=== PATIENT | male | born 1965 | race Caucasian/White ===

== ENCOUNTER 2017-03-01 09:47 | Inpatient (IN) | payer BC ==
[2017-03-01 10:51] LABS: Hematocrit 37 % (42-52); Hemoglobin 11.4 g/dl (14.0-18.0); Mean Corpuscular HGB Conc 31 g/dl (31-36); Mean Corpuscular Hemoglobin 26 pg (27-31); Mean Corpuscular Volume 84 fL (80-94); Mean Platelet Volume 7 um3 (7.4-10.4); Red Blood Count 4.34 10^6/ul (4.0-5.4); Red Cell Distribution Width 18 % (10.5-15); White Blood Count 20.2 10^3/ul (3.5-10.8)
[2017-03-01 10:52] LABS: Comments Flag Yes
[2017-03-01 11:05] LABS: Albumin 3.1 g/dL (3.2-5.2); Calcium 8.6 mg/dL (8.6-10.3); EGFR African American 74.8 (>60); EGFR Non-African American 58.2 (>60); Globulin 3.6 g/dL (2-4); Potassium 3.7 mmol/L (3.5-5.0); Total Bilirubin 0.6 mg/dL (0.2-1.0); Total Protein 6.7 g/dL (6.4-8.9)
[2017-03-01] MEDS ORDERED: NS 0.9% 1000 ML* 1,000 ML IV ONE (11:15)
[2017-03-01] MEDS ORDERED: Iodixanol* (CONTRAST) 320 MG/ML 100 ML SDV IV ONE (11:26)
[2017-03-01] MEDS ORDERED: Azithromycin IV(*) 500 MG in NS 0.9% 250 ML* 250 ML IVPB ONE (12:16)
[2017-03-01] MEDS ORDERED: cefTRIAXone(*) 1 GM in NS 0.9% 50 ML* 50 ML IVPB ONE (12:16)
--- NOTE | 2017-03-01 12:31 | RAD ---
INDICATION: Pleuritic chest pain. COMPARISON: Comparison is made with a prior chest x-ray study from March 01, [address] of the chest from January 31, 2017. Correlation is also made with prior CTs of the chest from October 12, 2016 and January 07, 2015. TECHNIQUE: A CT scan of the chest was performed with intravenous contrast following intravenous injection of 80 ml of Visipaque 320 nonionic contrast. Contiguous axial sections were obtained from the lung apices through the lung bases. Images were reconstructed in the coronal and sagittal planes. FINDINGS: There is a relatively large infiltrate with air bronchograms present in the right lower lobe. There is a small right pleural effusion. There is also a much smaller infiltrate present in the right middle lobe. There is minimal atelectasis in the left lower lobe. There is a 1.3 x 1.2 cm pulmonary nodule present in the left lower lobe at the medial lung base which is unchanged from prior studies dating back to at least December 2014. There are multiple enlarged lymph nodes present within the mediastinum in the right paratracheal aorticopulmonary window and subcarinal regions and also within the azygos esophageal recess. The largest lymph node is noted in the aorticopulmonary window region measuring 3.5 x 2.8 cm in size which is unchanged significantly from the prior exam. There has been interval decrease in size of some of the lymph nodes. For example a lymph node in the right paratracheal region measuring 2.6 cm in transverse dimension previously measured 3.3 cm in transverse dimension. There are also mediastinal lymph nodes which have increased in size for example a lymph node in the subcarinal region measuring 2.1 cm in transverse dimension previously measured 1.4 cm in transverse dimension. There is also a right hilar mass which is ill-defined which appears unchanged significantly from the prior study measuring 2.0 cm in transverse dimension. The heart is within normal limits in size. No pericardial effusion is present. The thoracic aorta is normal in caliber. Images of the upper abdomen demonstrate findings consistent with a right nephrectomy. The patient is status post gastric bypass surgery. No significant focal osseous abnormality is seen. The results of this exam were discussed with the referring clinician. IMPRESSION: 1. RIGHT LOWER LOBE INFILTRATE AND SMALL PLEURAL EFFUSION. 2. MEDIASTINAL AND RIGHT HILAR LYMPHADENOPATHY DEMONSTRATING A MIXED RESPONSE FROM THE PRIOR STUDY DISCUSSED ABOVE. 3. STABLE LEFT LOWER LOBE PULMONARY NODULE.
[2017-03-01 12:40] LABS: Urine Bacteria Absent (Absent); Urine Bilirubin Negative (Negative); Urine Glucose Negative (Negative); Urine Nitrite Negative (Negative)
[2017-03-01] MEDS ORDERED: Morphine INJ* 2 MG/ML 1 ML SYRINGE IV ONE (13:02)
[2017-03-01] MEDS: Morphine INJ* 2 MG/ML 1 ML SYRINGE IV PRN ×2 (15:48→20:54)
[2017-03-01] MEDS: Heparin VIAL(*) 5000 UNITS/ML VIAL (FIVE THOUSAND) SUBCUT SCH ×2 (15:49→20:55)
[2017-03-01] MEDS ORDERED: traZODone TAB* 50 MG TAB PO PRN (16:11)
[2017-03-01] MEDS ORDERED: ALPRAZolam TAB* 0.25 MG PO PRN (16:17)
[2017-03-01] MEDS: Cefepime(*) 2 GM in NS 0.9% 50 ML* 50 ML IVPB SCH (18:20)
[2017-03-01] MEDS ORDERED: Alteplase (CATHFLO)* 2 MG VIAL IV ONE (19:00)
[2017-03-01 19:32] LABS: Comments Flag Yes; Hematocrit 35 % (42-52); Hemoglobin 10.8 g/dl (14.0-18.0); Mean Corpuscular HGB Conc 31 g/dl (31-36); Mean Corpuscular Hemoglobin 26 pg (27-31); Mean Corpuscular Volume 85 fL (80-94); Mean Platelet Volume 8 um3 (7.4-10.4); Red Blood Count 4.12 10^6/ul (4.0-5.4); Red Cell Distribution Width 17 % (10.5-15); White Blood Count 18.7 10^3/ul (3.5-10.8)
[2017-03-01 19:45] LABS: Calcium 8.3 mg/dL (8.6-10.3); EGFR African American 91.7 (>60); EGFR Non-African American 71.3 (>60); Potassium 3.5 mmol/L (3.5-5.0)
[2017-03-01] MEDS: clonazePAM TAB(*) 1 MG PO PRN (20:50)
[2017-03-02] MEDS: Acetaminophen TAB* 325 MG PO PRN ×2 (01:01→17:22)
[2017-03-02] MEDS: Morphine INJ* 2 MG/ML 1 ML SYRINGE IV PRN ×6 (01:02→17:28)
[2017-03-02] MEDS: NS 0.9% 1000 ML* 1,000 ML IV SCH ×3 (01:15→23:00)
[2017-03-02] MEDS: Cefepime(*) 2 GM in NS 0.9% 50 ML* 50 ML IVPB SCH ×2 (02:02→15:11)
[2017-03-02] MEDS: Heparin VIAL(*) 5000 UNITS/ML VIAL (FIVE THOUSAND) SUBCUT SCH ×3 (07:20→20:33)
[2017-03-02] MEDS: BuPROPion XL* 150 MG TAB.XL PO SCH (08:11)
[2017-03-02] MEDS: Citalopram TAB* 40 MG PO SCH (08:12)
[2017-03-02] MEDS: Dexamethasone TAB* 1 MG PO SCH (08:12)
--- NOTE | 2017-03-02 09:21 | RAD ---
Indication: Cough. Single view of the chest demonstrates right lower lobe atelectasis or pneumonia. Left lung field is clear. Central line is in place. IMPRESSION: Findings consistent with right basilar pneumonia or atelectasis. This was not present on prior CT.
--- NOTE | 2017-03-02 10:09 | RAD ---
Indication: Pleuritic chest pain. Loss of consciousness. Renal cell carcinoma. RIGHT temporal lobe metastasis. Comparison: February 09, 2017 MRI and Technique: Noncontrast CT vertex of skull through foramen magnum. Report: Extensive vasogenic edema involving the RIGHT temporal, parietal, and frontal lobes with associated mass effect including partial overlying sulcal effacement, 3 mm leftward midline shift at the level of the septum pellucidum, and partial compression of the RIGHT lateral ventricle without significant change compared with the February 09, 2017 MRI. 1.5 x 1.6 cm region of ill-defined heterogeneous increased density at the level of the RIGHT temporal lobe uncus corresponds with the enhancing tumor on February 09, 2017 MRI. No additional focal intra-axial or extra-axial supratentorial or infratentorial lesions evident. Negative for effacement of the basal cisterns. Negative for intra or extra-axial hemorrhage. Unremarkable orbital contents. No suspicious calvarial or skull base lesions. Clear visualized paranasal sinuses and mastoid air spaces. Unremarkable scalp. IMPRESSION: 1. No significant change in extensive vasogenic edema involving the RIGHT temporal, parietal, and frontal lobes with associated mass effect as described without interval change compared with the February 09, 2017 MRI secondary to the previously documented metastasis at the medial RIGHT temporal lobe. No new intra or extra-axial lesions evident within limits of noncontrast CT. 2. No evidence for intra or extra-axial hemorrhage. 3. No additional acute intracranial process evident.
[2017-03-03] MEDS: Cefepime(*) 2 GM in NS 0.9% 50 ML* 50 ML IVPB SCH ×3 (02:31→15:00)
[2017-03-03] MEDS: Morphine INJ* 2 MG/ML 1 ML SYRINGE IV PRN ×5 (03:18→18:34)
[2017-03-03] MEDS: Heparin VIAL(*) 5000 UNITS/ML VIAL (FIVE THOUSAND) SUBCUT SCH ×3 (05:06→20:46)
[2017-03-03] MEDS: Dexamethasone TAB* 1 MG PO SCH (07:59)
[2017-03-03] MEDS: BuPROPion XL* 150 MG TAB.XL PO SCH (08:00)
[2017-03-03] MEDS: Citalopram TAB* 40 MG PO SCH (08:00)
--- NOTE | 2017-03-03 08:23 | PN ---
Progress Note - Progress Note SOAP: Subjective: overall improving, though did need to be placed on O2 this am. admits to shallow breathing and being afraid to get out of bed. will not sit up for me to listen to him this am (rolled to side). continued pleuritic chest pain, though better. no cough. no diarrhea. Objective: Vital Signs Temp Pulse Resp BP Pulse Ox 98.4 F 80 20 128/71 98 03/03/17 07:37 03/03/17 07:37 03/03/17 08:00 03/03/17 07:37 03/03/17 07:45 morbidly obese male lying flat in NAD perr eomi op moist dec resp effort, dec bs right base s1 s2 distant obese nt +bs no le edema A+O x 3 nonfocal neurological exam Acetaminophen (Tylenol Tab*) 650 mg PO Q4H PRN PRN Reason: mild pain/fever Last Admin: 03/02/17 17:22 Dose: 650 mg Alprazolam (Xanax Tab*) 0.25 mg PO TID PRN PRN Reason: ANXIETY Last Admin: 03/02/17 03:50 Dose: 0.25 mg Bupropion HCl (Wellbutrin Xl *) 150 mg PO QAM [facility] PRN Reason: Protocol Last Admin: 03/03/17 08:00 Dose: 150 mg Citalopram Hydrobromide (Celexa Tab*) 40 mg PO DAILY [facility] Last Admin: 03/03/17 08:00 Dose: 40 mg Clonazepam (Klonopin Tab(*)) 1 mg PO BID PRN PRN Reason: ANXIETY Last Admin: 03/01/17 20:50 Dose: 1 mg Dexamethasone (Decadron Tab*) 2 mg PO QAM [facility] Last Admin: 03/03/17 07:59 Dose: 2 mg Heparin Sodium (Porcine) (Heparin Flush Port (Ivad)) 5 ml FLUSH DAILY [facility] PRN Reason: Protocol Last Admin: 03/02/17 09:24 Dose: Not Given Heparin Sodium (Porcine) (Heparin Vial(*)) 5,000 units SUBCUT Q8HR [facility] Last Admin: 03/03/17 05:06 Dose: 5,000 units Sodium Chloride (Ns 0.9% 1000 Ml*) 1,000 mls @ 100 mls/hr IV PER RATE [facility] Last Admin: 03/02/17 23:00 Dose: 100 mls/hr Cefepime HCl 2 gm/ Sodium (Chloride) 50 mls @ 100 mls/hr IVPB Q12H [facility] Last Admin: 03/03/17 02:31 Dose: 100 mls/hr Morphine Sulfate (Morphine Inj (Syringe)*) 2 mg IV Q2H PRN PRN Reason: PAIN Last Admin: 03/03/17 08:00 Dose: 2 mg Trazodone HCl (Desyrel Tab*) 150 mg PO BEDTIME PRN PRN Reason: INSOMNIA labs pending (port flush but no blood return) Assessment: 51 yo morbidly obese Male with metastatic renal cell carcinoma on palliative nivolumab presenting with a large right lower and middle lobe PNA. clinically improving slowly. Plan: -cont cefepime -incentive spirometer (suspect worsening hypoxia is driven by atelectasis and shallow breathing) -encouraged to get out of bed to chair/ambulate. PT consult placed -cont mrophine PRN pain -bowel regimen -cont dexamethasone (brain mets) -heparin sc dvt prophylaxis
[2017-03-03 09:22] LABS: Hematocrit 31 % (42-52); Hemoglobin 9.6 g/dl (14.0-18.0); Mean Corpuscular HGB Conc 32 g/dl (31-36); Mean Corpuscular Hemoglobin 27 pg (27-31); Mean Corpuscular Volume 84 fL (80-94); Mean Platelet Volume 8 um3 (7.4-10.4); Red Blood Count 3.64 10^6/ul (4.0-5.4); Red Cell Distribution Width 17 % (10.5-15); White Blood Count 12.3 10^3/ul (3.5-10.8)
[2017-03-03 09:33] LABS: BUN/Creatinine Ratio 10.7 (8-20); Calcium 8.3 mg/dL (8.6-10.3); EGFR African American 141.2 (>60); EGFR Non-African American 109.8 (>60); Potassium 3.3 mmol/L (3.5-5.0)
[2017-03-03] MEDS: NS 0.9% 1000 ML* 1,000 ML IV SCH ×2 (10:05→22:18)
[2017-03-03] MEDS: KCL 10 MEQ/50 ML IVPREMIX* 10 MEQ/50 ML BAG IV SCH ×4 (10:16→15:50)
[2017-03-04] MEDS: Cefepime(*) 2 GM in NS 0.9% 50 ML* 50 ML IVPB SCH ×2 (03:22→14:48)
[2017-03-04 05:10] LABS: Hematocrit 29 % (42-52); Mean Corpuscular HGB Conc 31 g/dl (31-36); Mean Corpuscular Hemoglobin 26 pg (27-31); Mean Corpuscular Volume 85 fL (80-94); Mean Platelet Volume 8 um3 (7.4-10.4); Red Blood Count 3.45 10^6/ul (4.0-5.4); Red Cell Distribution Width 17 % (10.5-15); White Blood Count 10.3 10^3/ul (3.5-10.8)
[2017-03-04] MEDS: Heparin VIAL(*) 5000 UNITS/ML VIAL (FIVE THOUSAND) SUBCUT SCH ×2 (05:10→14:22)
[2017-03-04 05:26] LABS: Albumin 2.4 g/dL (3.2-5.2); BUN/Creatinine Ratio 9.7 (8-20); EGFR Non-African American 115.1 (>60); Globulin 3.2 g/dL (2-4); Magnesium 2.1 mg/dL (1.9-2.7); Potassium 3.8 mmol/L (3.5-5.0); Total Bilirubin 0.2 mg/dL (0.2-1.0); Total Protein 5.6 g/dL (6.4-8.9)
[2017-03-04] MEDS: Citalopram TAB* 40 MG PO SCH (08:17)
[2017-03-04] MEDS: BuPROPion XL* 150 MG TAB.XL PO SCH (08:18)
[2017-03-04] MEDS: Dexamethasone TAB* 1 MG PO SCH (08:18)
[2017-03-04] MEDS: NS 0.9% 1000 ML* 1,000 ML IV SCH (09:46)
--- NOTE | 2017-03-04 12:02 | PN ---
Subjective Date of Service: 03/04/17 Interval History: Pt is feeling well. He states he is not having as much pain with deep breath today. He feels that he can breathe much deeper than even just yesterday. He has been up and walking to the bathroom without any difficulty. Objective Active Medications: Acetaminophen (Tylenol Tab*) 650 mg PO Q4H PRN PRN Reason: mild pain/fever Last Admin: 03/02/17 17:22 Dose: 650 mg Alprazolam (Xanax Tab*) 0.25 mg PO TID PRN PRN Reason: ANXIETY Last Admin: 03/02/17 03:50 Dose: 0.25 mg Bupropion HCl (Wellbutrin Xl *) 150 mg PO QAM [facility] PRN Reason: Protocol Last Admin: 03/04/17 08:18 Dose: 150 mg Citalopram Hydrobromide (Celexa Tab*) 40 mg PO DAILY [facility] Last Admin: 03/04/17 08:17 Dose: 40 mg Clonazepam (Klonopin Tab(*)) 1 mg PO BID PRN PRN Reason: ANXIETY Last Admin: 03/01/17 20:50 Dose: 1 mg Dexamethasone (Decadron Tab*) 2 mg PO QAM [facility] Last Admin: 03/04/17 08:18 Dose: 2 mg Heparin Sodium (Porcine) (Heparin Flush Port (Ivad)) 5 ml FLUSH DAILY [facility] PRN Reason: Protocol Last Admin: 03/04/17 08:11 Dose: Not Given Heparin Sodium (Porcine) (Heparin Vial(*)) 5,000 units SUBCUT Q8HR [facility] Last Admin: 03/04/17 05:10 Dose: 5,000 units Sodium Chloride (Ns 0.9% 1000 Ml*) 1,000 mls @ 100 mls/hr IV PER RATE [facility] Last Admin: 03/04/17 09:46 Dose: 100 mls/hr Cefepime HCl 2 gm/ Sodium (Chloride) 50 mls @ 100 mls/hr IVPB Q12H [facility] Last Admin: 03/04/17 03:22 Dose: 100 mls/hr Morphine Sulfate (Morphine Inj (Syringe)*) 2 mg IV Q2H PRN PRN Reason: PAIN Last Admin: 03/03/17 18:34 Dose: 2 mg Trazodone HCl (Desyrel Tab*) 150 mg PO BEDTIME PRN PRN Reason: INSOMNIA Vital Signs 03/03/17 03/03/17 03/03/17 16:16 16:26 17:26 Temperature 98.6 F Pulse Rate 80 Respiratory 19 16 20 Rate Blood Pressure 113/67 (mmHg) O2 Sat by Pulse 92 Oximetry 03/03/17 03/03/17 03/03/17 18:34 19:34 19:36 Temperature 97.5 F Pulse Rate 101 Respiratory 20 20 17 Rate Blood Pressure 124/73 (mmHg) O2 Sat by Pulse 94 Oximetry 03/03/17 03/04/17 03/04/17 20:00 00:00 00:29 Temperature 99.0 F Pulse Rate 70 Respiratory 20 20 Rate Blood Pressure 139/80 (mmHg) O2 Sat by Pulse 94 96 96 Oximetry 03/04/17 03/04/17 03/04/17 04:42 07:18 08:05 Temperature 98.2 F 97.8 F Pulse Rate 67 62 Respiratory 20 16 20 Rate Blood Pressure 130/72 134/80 (mmHg) O2 Sat by Pulse 95 97 Oximetry 03/04/17 11:39 Temperature 98.3 F Pulse Rate 64 Respiratory 16 Rate Blood Pressure 120/72 (mmHg) O2 Sat by Pulse 91 Oximetry Oxygen Devices in Use Now: None Appearance: Middle aged male lying in bed, NAD Eyes: No Scleral Icterus Ears/Nose/Mouth/Throat: Mucous Membranes Moist Respiratory: Symmetrical Chest Expansion and Respiratory Effort, - - markedly decreased breath sounds at the R base Cardiovascular: NL Sounds; No Murmurs; No JVD, RRR, - - L LE > R LE Abdominal: NL Sounds; No Tenderness; No Distention - obese Extremities: No Clubbing, Cyanosis Skin: No Rash or Ulcers, No Nodules or Sclerosis Neurological: Alert and Oriented x 3 Result Diagrams: 03/04/17 04:34 03/04/17 04:34 Microbiology and Other Data: Microbiology 03/02/17 02:42 Aerobic Blood Culture - Preliminary Blood Venous No Growth Day 2 Anaerobic Blood Culture - Preliminary No Growth Day 2 Blood Culture - Final 03/01/17 19:15 Aerobic Blood Culture - Preliminary Blood Venous No Growth Day 2 Anaerobic Blood Culture - Preliminary No Growth Day 2 Blood Culture - Final Assess/Plan/Problems-Billing Mr Teresa is a 51 yo M with a h/o metastatic renal cell carcinoma (brain mets) who presented to [facility] with c/o severe R rib pain and was found to be septic secondary to a RLL pneumonia. - Patient Problems (1) Sepsis Current Visit: Yes Status: Acute Comment: The patient was septic on admission with a SOFA score of 2. By sepsis 2 criteria the pateint was severely septic with leukocytosis, fever and tachycardia with CRISTOBAL as end organ dysfunction. The patient was septic secondary to a RLL pneumonia. The sepsis has now resolved. (2) RLL pneumonia Current Visit: Yes Status: Acute Code(s): J18.1 - LOBAR PNEUMONIA, UNSPECIFIED ORGANISM SNOMED Code(s): 971485701 Comment: The patient has a very dense RLL infiltrate with small pleural effusion on admission. His WBC count has normalized, he is afebrile and he states his breathing is much more comfortable. In fact he feels ready to go home. Will get doppler of the L LE as it is larger than the R and if no DVT can d/c pt home. If positive for DVT will start lovenox. (3) Renal cell carcinoma Current Visit: Yes Status: Chronic Code(s): C64.9 - MALIGNANT NEOPLASM OF UNSP KIDNEY, EXCEPT RENAL PELVIS SNOMED Code(s): 503765816 Comment: Management per oncology. (4) Anxiety Current Visit: Yes Status: Chronic Code(s): F41.9 - ANXIETY DISORDER, UNSPECIFIED SNOMED Code(s): 32092665 Comment: Continue prn xanax. (5) DVT prophylaxis Current Visit: Yes Status: Acute Code(s): TEV1301 - SNOMED Code(s): 052348083 Comment: SQ heparin (6) Full code status Current Visit: Yes Status: Acute Code(s): Z78.9 - OTHER SPECIFIED HEALTH STATUS SNOMED Code(s): 165333740
--- NOTE | 2017-03-04 17:36 | RAD ---
HISTORY: Left lower extremity swelling TECHNIQUE: Multiple transverse and longitudinal ultrasound images were obtained of the veins of the right lower extremity using grayscale, color Doppler, and spectral Doppler imaging with and without compression and with augmentation. FINDINGS: VEINS: There is near complete loss of color flow involving the left popliteal vein. The left popliteal vein has echogenic thrombus in the lumen and is only partially compressive. There is occlusive thrombus filling the left posterior tibial veins. The common femoral vein, deep femoral vein and femoral vein are compressible throughout their course, with normal flow on color Doppler imaging and normal response to augmentation on spectral Doppler imaging. SOFT TISSUES: Grossly normal. No large popliteal fossa cyst was identified. IMPRESSION: There is almost completely occlusive thrombus involving the left popliteal vein and occlusive thrombus in the left posterior tibial vein.
[2017-03-04] MEDS: Enoxaparin(*) 150 MG/ML 1 ML SYRINGE SUBCUT SCH (18:14)
[2017-03-05] MEDS: Cefepime(*) 2 GM in NS 0.9% 50 ML* 50 ML IVPB SCH (02:46)
[2017-03-05] MEDS: Enoxaparin(*) 150 MG/ML 1 ML SYRINGE SUBCUT SCH (05:54)
[2017-03-05] MEDS ORDERED: Loperamide CAP* 2 MG PO ONE (10:06)
[2017-03-05] MEDS: clonazePAM TAB(*) 1 MG PO PRN (10:34)
[2017-03-05] MEDS: Citalopram TAB* 40 MG PO SCH (10:35)
[2017-03-05] MEDS: Dexamethasone TAB* 1 MG PO SCH (10:35)
[2017-03-05] MEDS: BuPROPion XL* 150 MG TAB.XL PO SCH (10:35)
[2017-03-05 12:17] VITALS: BP 139/83
[2017-03-05] MEDS ORDERED: Enoxaparin(*) 40 MG/0.4 ML SYR ONE (12:21)
--- NOTE | 2017-03-05 23:42 | DS ---
DISCHARGE SUMMARY: DATE OF ADMISSION: 03/01/17 DATE OF DISCHARGE: 03/05/17 ATTENDING PROVIDER: Shanon Choi MD (DICTATED BY TOYA URBINA) REASON FOR ADMISSION: Right lower lobe pneumonia. OTHER CURRENT DIAGNOSES: Include: 1. New deep vein thrombosis, left lower extremity. 2. Sepsis. 3. Anxiety disorder. 4. Renal cell carcinoma, currently on nivolumab. 5. Cerebral lesion. 6. Syncope. 7. Gastroesophageal reflux disease. 8. Metastatic carcinoma to the lung from renal cell carcinoma. HOSPITAL COURSE: Briefly, the patient was admitted to the hospital through the emergency room and felt to meet sepsis criteria. He did also get a chest x-ray and CT scan of the chest, which revealed a right lower lobe pneumonia which was rather extensive. He was amaral cultured and placed on cefepime antibiotic therapy. His home medications were continued during his hospital stay. On Sunday, the day before his discharge, Dr. Bravo ordered a Doppler of the left lower extremity, which did reveal a popliteal occlusive DVT and was placed on Lovenox b.i.d. dosing of 130 mg b.i.d. The patient on the day of his discharge , the vital signs were all stable and his breathing was significantly better. He will be sent home on the following discharge medications. 1. Tylenol as needed. 2. Xanax 0.25 p.o. t.i.d. p.r.n. anxiety. 3. Wellbutrin XL 150 mg in the morning. 4. Celexa 40 mg daily. 5. Klonopin 1 mg p.o. b.i.d. p.r.n. anxiety. 6. Decadron 2 mg p.o. daily. 7. Lovenox 120 mg subcutaneous every 12 hours, the dosing was reviewed with Dr. Atkins. 8. Trazodone 150 mg p.o. at bedtime for insomnia. 9. Levaquin 750 mg p.o. every day x 10 additional days. He will also e-scribe the Lovenox for b.i.d. dosing. Both [id number] and mother are being taught for Lovenox teaching prior to his discharge. He steadily improved throughout the course of his stay for pneumonia treatment and his vital signs remain stable and he is afebrile today. He will need to follow up with Dr. Atkins in approximately 1 week. His nivolumab therapy which was scheduled for 03/05/17 has been cancelled until his pneumonia is completely treated. In addition, he will follow a regular diet and activity level as tolerated and continue with medications as above. TOYA URBINA [id number]/[facility] #: [id number] [place]
== END 2017-03-05 13:20 | disposition home or self-care (01) | DRG 720 ==
LOC: ED 09:47 → MEDTELE 13:04 → UNDOADMIN 13:09 → MEDTELE 13:09
PROVIDERS: ADMIT Internal Medicine Hematology & Oncology; ATTEND Internal Medicine Hematology & Oncology
DX: A41.9 Sepsis, unspecified organism (principal); J18.9 Pneumonia, unspecified organism; C78.00 Secondary malignant neoplasm of unspecified lung; I82.432 Acute embolism and thrombosis of left popliteal vein; C64.9 Malignant neoplasm of unspecified kidney, except renal pelvis; F41.9 Anxiety disorder, unspecified; K21.9 Gastro-esophageal reflux disease without esophagitis; G93.9 Disorder of brain, unspecified; Z79.1 Long term (current) use of non-steroidal anti-inflammatories (NSAID); Z79.899 Other long term (current) drug therapy; E66.9 Obesity, unspecified; Z68.38 Body mass index [BMI] 38.0-38.9, adult
CPT/HCPCS: 36415; 70450; 71010; 71260; 80048; 80053; 81003; 81015; 83605; 83735; 84484; 85025; 85610; 85730; 87040; 93005; 94760; 99223; 99239; A9270-GY; J0456; J0692; J0696; J1642; J1644; J1650; J2270; J2997; J3480; Q9967

== ENCOUNTER 2017-03-15 12:47 | Inpatient (IN) | payer BC ==
[2017-03-15] MEDS ORDERED: NS 0.9% 1000 ML* 1,000 ML IV SCH (13:45)
[2017-03-15] MEDS ORDERED: ALPRAZOLAM 0.5 MG PO PRN (13:53)
[2017-03-15] MEDS ORDERED: traZODone TAB* 50 MG TAB PO PRN (14:01)
[2017-03-15] MEDS ORDERED: Ondansetron INJ* 2 MG/ML VIAL IV PRN (14:04)
[2017-03-15] MEDS ORDERED: LORazepam INJ* 2 MG/ML 1 ML VIAL IV PUSH PRN (14:04)
[2017-03-15] MEDS ORDERED: Lidocaine 1% INJ* 10 MG/ML 30 ML SDV ONE (14:38)
[2017-03-15] MEDS ORDERED: Heparin 2 UNITS/ML IVPREMIX* 1,000 ML IV ONE (14:39)
[2017-03-15] MEDS ORDERED: Buffered Lidocaine 1% SYRIN* 5 ML/SYR SYRINGE ONE (14:41)
[2017-03-15] MEDS: Pantoprazole IV* 80 MG in NS 0.9% 250 ML* 250 ML IVPB SCH ×2 (14:45→18:03)
[2017-03-15 16:36] LABS: Hematocrit 24 % (42-52); Hemoglobin 7.6 g/dl (14.0-18.0); Mean Corpuscular HGB Conc 31 g/dl (31-36); Mean Corpuscular Hemoglobin 26 pg (27-31); Mean Corpuscular Volume 84 fL (80-94); Mean Platelet Volume 7 um3 (7.4-10.4); Red Blood Count 2.88 10^6/ul (4.0-5.4); Red Cell Distribution Width 18 % (10.5-15); White Blood Count 9.9 10^3/ul (3.5-10.8)
[2017-03-15] MEDS ORDERED: Pantoprazole IV* 40 MG IV ONE (18:00)
[2017-03-15] MEDS: clonazePAM TAB(*) 1 MG PO SCH (20:58)
--- NOTE | 2017-03-16 01:53 | CONS ---
GASTROENTEROLOGY CONSULT: DATE OF: 03/15/17 CONSULTING PHYSICIAN: Fabricio Eisenberg REASON FOR CONSULT: Hematemesis and dark red rectal bleeding that occurred after being treated for the last 7 to 8 days with Lovenox twice a day for a new left lower leg DVT coming on while hospitalized for pneumonia. HISTORY OF PRESENT ILLNESS: This 51-year-old man, who has metastatic renal cell cancer, currently on nivolumab since mid October 2016, was hospitalized for pneumonia 2 weeks ago and during that time developed DVT and was placed on Lovenox. He apparently has never had a thromboembolic event before. He was discharged on Lovenox twice a day and then on the evening of March 13 passed dark bloody stool followed within half an hour by vomiting that was also bloody. He said it was very loose and runny, but did not contain any clots. About every 8 hours, he had another such event. The history and physical documents his calling in to the answering service but then not promptly following up on suggestions until today when he was seen in followup and then was quickly admitted. He elected to not take the Lovenox the last 3 scheduled shots and thus credits that step with today not vomiting or having any further bloody stools since stopping the Lovenox. He denies any prior history of gastroesophageal reflux or vomiting blood. He had a gastroscopy by Dr Roman about 6 years ago prior to gastric bypass by Dr. Gonzalez, September 2012. PAST MEDICAL HISTORY: 1. Renal cell cancer - August 2008 presenting with hematuria and flank pain. Tumor was said to be encapsulated and with negative lymph nodes. He had positive mediastinal adenopathy, February 2011, and a mediastinoscopy at [facility]. He was then placed on Votrient which he took until nivolumab was started. He had CyberKnife radiotherapy to a solitary brain met, April 2015. 2. Morbid obesity. 3. Status post gastrointestinal bypass - he states he lost 240 pounds but has gained back 80. SOCIAL HISTORY: He is a morbidly obese, middle-aged man in no overt distress at this time. He is not vomiting. He is and is a nonsmoker. REVIEW OF SYSTEMS: He does suffer from anxiety, depression, renal stones, and sleep apnea. He has no history of TB, hemoptysis, hepatitis, jaundice, bladder stones, recent falls, or fractures. PHYSICAL EXAM: He is an obese, middle-aged man, in no overt distress at this time, sitting 30 degrees upright in bed. He has no abdominal pain. Just 2 hours ago, he had right groin access to place a vena cava filter. He has no adenopathy. His lungs are symmetrically diminished as to breath sounds. Heart sounds are regular. The abdomen is obese with normal bowel sounds, soft, and there is no deep tenderness whatsoever. Rectal is deferred. Neurologic: He is alert, oriented, symmetric cranial nerves. Able to lift his arms and legs in bed. LABORATORY DATA: Hemoglobin 7.6 at 4:30 down from 9.0, 6 hours before. During his prior admission, there had been a step-damon decrease hemoglobin from 11.4 to 10.8 to 9.6 to 9.0. IMPRESSION: This 51-year-old man with unfortunately widely metastatic renal cell cancer was felt by his oncology treatment team to be fairly stable with regards to that process. Nonetheless, is having other problems with a recent pneumonia, small DVT and is gaining significant weight after achieving substantial weight loss with bariatric surgery. The current bleeding history seeing blood from both ends and yet at presentation no change in Hg occurring just 1 week into taking Lovenox at conventional dosing is difficult to put together. Dr Eisenberg did think there was lab evidence for excessive anticoagulant effect. He did fine for a week and said that seeing the blood per rectum was the first sign. He then fairly shortly had an episode of emesis with some blood in it. His hemoglobin was not initially down (and his BUN only up a little 7 to 23) which would be odd for bleeding profuse enough to get down to the rectum at presentation. It is possible that the vomiting of bloody material may have been a secondary phenomenon unrelated to the passing of blood per rectum. Nonetheless, getting reliable information without a fairly burdensome prep not possible for the lower tract and for the moment, we will obtain an EGD as the first study just because his bleeding is not torrential at the moment and more information would be helpful. A flex sig with no prep can rule out colitis if there is an autoimmune or ischemic left colon issue. [id number]/[facility] #: [id number] [facility] HOSPITALBhavesh
[2017-03-16] MEDS ORDERED: NS 0.9% 250 ML* 0 ML ONE (04:13)
[2017-03-16] MEDS: Pantoprazole IV* 80 MG in NS 0.9% 250 ML* 250 ML IVPB SCH ×3 (04:17→17:16)
[2017-03-16 05:57] LABS: Hematocrit 21 % (42-52); Mean Corpuscular HGB Conc 32 g/dl (31-36); Mean Corpuscular Hemoglobin 27 pg (27-31); Mean Corpuscular Volume 84 fL (80-94); Mean Platelet Volume 7 um3 (7.4-10.4); Red Blood Count 2.45 10^6/ul (4.0-5.4); Red Cell Distribution Width 18 % (10.5-15); White Blood Count 7.7 10^3/ul (3.5-10.8)
[2017-03-16 05:59] LABS: Comments Flag Yes; Hemoglobin 6.5 g/dl (14.0-18.0)
[2017-03-16 06:10] LABS: Albumin 2.7 g/dL (3.2-5.2); Calcium 7.7 mg/dL (8.6-10.3); EGFR African American 117.4 (>60); EGFR Non-African American 91.3 (>60); Globulin 2.4 g/dL (2-4); Potassium 3.6 mmol/L (3.5-5.0); Total Bilirubin 0.2 mg/dL (0.2-1.0); Total Protein 5.1 g/dL (6.4-8.9)
[2017-03-16] MEDS ORDERED: Meperidine SYRINGE* 50 MG/ML ONE (07:34)
[2017-03-16] MEDS ORDERED: Midazolam* 1 MG/ML 10 ML VIAL (10 MG) ONE (07:34)
--- NOTE | 2017-03-16 08:11 | RAD ---
CPT II Codes: 6045F INDICATION: GI bleed in a patient with a history of DVTs TECHNIQUE: Intraoperative fluoroscopy was provided during IVC filter insertion. FINDINGS: 3 spot films depict wire cannulation of the inferior vena cava with appointment of a [place] filter with the tip at the level of the L2 superior endplate.. Fluoroscopy time: 22 seconds IMPRESSION: As above.
--- NOTE | 2017-03-16 09:05 | OP ---
DATE OF OPERATION: 03/15/17 - ROOM #338 DATE OF : 65 SURGEON: Andrzej Gunderson MD ANESTHESIOLOGIST: Dr. Hays. ANESTHESIA: Intravenous sedation. PRE-OP DIAGNOSIS: POST-OP DIAGNOSIS: OPERATIVE PROCEDURE: IVC filter insertion. INDICATIONS: The patient is a 51-year-old male with known metastatic renal cell carcinoma who, approximately a week ago, was diagnosed with a left leg deep venous thrombosis. He has been on Lovenox since then. Yesterday, he started to develop GI bleed which became more severe, and then he was admitted to the hospital today. I was consulted by the oncologist. I did speak to Dr. Choi and she felt that he should have a permanent filter placed as he could not be anticoagulated again. I did review his scans and his abdominal scan as well. I did discuss this with the patient. He understands the procedure and is agreeable to it. DESCRIPTION OF PROCEDURE: The patient is supine on the fluoroscopy table. Dr. Hays administered intravenous sedation. The right groin was clipped and prepped with antiseptic, draped in a sterile fashion. Local infiltrative anesthesia was administered and attempted venipuncture was carried out; however , this was not successful and therefore ultrasound was utilized to identify the vein. The vein was directly behind the artery and as I came more distal down, it did peek out from the lateral aspect of the artery and therefore under sonographic guidance, the needle was guided into the femoral vein. Good blood return was forthcoming. Guidewire was passed under fluoroscopic guidance followed by dilators and the introducer system was placed. The filter was delivered to approximately the L2 level without difficulty. It opened nicely, was in good position. The catheter was removed. Pressure was held. 5-0 Vicryl was used for the skin followed by Steri-Strips and a gauze dressing. He is brought to recovery room without difficulty. He tolerated the procedure well. Estimated blood loss was 20 mL. CC: Shanon Choi MD * [id number]/[facility] #: [id number] MTDD
--- NOTE | 2017-03-16 09:47 | PN ---
Progress Note - Progress Note SOAP: Subjective: []Better today then yesterday. Tolerated procedure and no additional bleeding. No diarrhea, breathing better then it was a few weeks ago. No fever or chills. Bupropion HCl (Wellbutrin Xl *) 300 mg PO QAM [facility] PRN Reason: Protocol Clonazepam (Klonopin Tab(*)) 1 mg PO TID [facility] Last Admin: 03/15/17 20:58 Dose: 1 mg Escitalopram Oxalate (Lexapro (Nf)) 20 mg PO DAILY [facility] Heparin Sodium (Porcine) (Heparin Flush Port (Ivad)) 5 ml FLUSH DAILY [facility] PRN Reason: Protocol Sodium Chloride (Ns 0.9% 1000 Ml*) 1,000 mls @ 50 mls/hr IV .PER RATE [facility] Last Admin: 03/15/17 14:00 Dose: 50 mls/hr Pantoprazole Sodium 80 mg/ (Sodium Chloride) 250 mls @ 25 mls/hr IVPB Q10H [facility] Last Admin: 03/16/17 04:17 Dose: 25 mls/hr Lactated Ringer's (Lactated Ringers 1000 Ml Bag*) 1,000 mls @ 125 mls/hr IV PER RATE [facility] Lorazepam (Ativan Inj*) 0.5 mg IV PUSH Q4H PRN PRN Reason: ANXIETY Non-Formulary Medication (Alprazolam [Alprazolam Odt]) 0.5 mg PO TID PRN PRN Reason: ANXIETY Ondansetron HCl (Zofran Inj*) 4 mg IV Q4H PRN PRN Reason: NAUSEA Trazodone HCl (Desyrel Tab*) 150 mg PO BEDTIME PRN PRN Reason: INSOMNIA Objective: [] Vital Signs Temp Pulse Resp BP Pulse Ox 97.8 F 63 18 100/59 94 03/16/17 09:14 03/16/17 09:14 03/16/17 09:14 03/16/17 09:14 03/16/17 09:14 HEENT - Pale, otherwise negative CTA RRR S1S2 +BS, NT/ND, obese Ext w/o edema no bruising on exam EGD - small ulcer, no bleeding Flex Sig to 50 cm, no visible colitis. Assessment: []51 year old metastatic RCC stable on Nivolumab. Recent pneumonia and now admitted GIB. EGD with small ulcer, no active bleeding. His PTT was elevated on admission, after missing 3 doses. I suspect he was supra-therapeutic on Lovenox at 120 mg bid as cause of bleed. Plan: []1. Case discussed with GI. Full diet and at this time differ full colonoscopy. 2. Anemia - Tx 2 U PRBC, home on PO iron 3. No colitis on flex sig, no GI symptoms. Can have occult colitis but if it was cause of bleeding would have been visible. 4. I recommends re-starting Lovenox at 90 mg sq bid and check level after 5 treatments. Also discussed Coumadin. He will talk to his and decide. IVC filter in place. 5. Plan D/C tomorrow if doing well.
--- NOTE | 2017-03-16 10:41 | PN ---
Progress Note - Progress Note SOAP: Subjective: Doing well, has no complaints. Denies right groin pain, swelling or bruising. No fever or chills. Objective: Awake and alert, comfortable in bed, in NAD. VSS, afebrile Right inguinal area with steristrips intact. Incision clean and dry. No bleeding , swelling or ecchymosis. Ext with no edema Assessment: Doing well, s/p IVC filter placement. Plan: May shower later today if desired. Medical management per hem/onch, likely d/c home tomorrow.
[2017-03-16] MEDS ORDERED: diPHENhydraMINE PO* 25 MG PO ONE (10:47)
[2017-03-16] MEDS ORDERED: Acetaminophen TAB* 325 MG PO ONE (10:47)
[2017-03-16] MEDS: clonazePAM TAB(*) 1 MG PO SCH ×3 (10:53→20:50)
[2017-03-16] MEDS: BuPROPion XL* 150 MG TAB.XL PO SCH (10:54)
[2017-03-16] MEDS: CMC: Escitalopram (NF) 10 MG TAB PO SCH (10:54)
[2017-03-17] MEDS ORDERED: NS 0.9% 250 ML* 250 ML ONE ×2 (05:16)
[2017-03-17] MEDS: Pantoprazole IV* 80 MG in NS 0.9% 250 ML* 250 ML IVPB SCH (05:23)
[2017-03-17] MEDS ORDERED: Pantoprazole IV* 80 MG in NS 0.9% 250 ML* 250 ML IVPB SCH (05:30)
[2017-03-17 05:32] LABS: Hematocrit 23 % (42-52); Hemoglobin 7.2 g/dl (14.0-18.0); Mean Corpuscular HGB Conc 32 g/dl (31-36); Mean Corpuscular Hemoglobin 27 pg (27-31); Mean Corpuscular Volume 84 fL (80-94); Mean Platelet Volume 7 um3 (7.4-10.4); Red Blood Count 2.69 10^6/ul (4.0-5.4); Red Cell Distribution Width 17 % (10.5-15)
[2017-03-17 05:44] LABS: Albumin 2.5 g/dL (3.2-5.2); BUN/Creatinine Ratio 11.7 (8-20); Calcium 7.5 mg/dL (8.6-10.3); EGFR African American 108.8 (>60); EGFR Non-African American 84.6 (>60); Globulin 2.3 g/dL (2-4); Potassium 3.4 mmol/L (3.5-5.0); Total Bilirubin 0.3 mg/dL (0.2-1.0); Total Protein 4.8 g/dL (6.4-8.9)
[2017-03-17] MEDS ORDERED: Omeprazole CAP* 20 MG PO SCH (08:30)
--- NOTE | 2017-03-17 08:33 | DS ---
- Discharge Summary ADMIT DATE:03/15/17 DISCHARGE DATE:03/17/17 DISCHARGE DIAGNOSIS: 1. upper GI bleed, gastric ulcer 2. DVT on lovenox 3. metastatic renal cancer on immunotherapy DISCHARGE MEDICATIONS: Home Medications Medication Instructions Recorded Confirmed Type traZODone TAB* [Desyrel TAB*] 150 mg PO BEDTIME PRN 08/04/13 03/15/17 History Dexamethasone TAB* [Decadron TAB*] 1 mg PO QAM 11/09/16 03/15/17 History Bupropion XL* [Wellbutrin XL *] 300 mg PO QAM 03/01/17 03/15/17 History clonazePAM TAB(*) [Klonopin TAB(*)] 1 mg PO TID MDD 3 mg 03/01/17 03/15/17 History Alprazolam [Alprazolam Odt] 0.5 mg PO TID PRN MDD 1.5mg 03/15/17 03/15/17 History Escitalopram Oxalate [Lexapro] 1 tab PO DAILY 03/15/17 03/15/17 History Meclizine HCl [Meclizine 25] 1 tab PO QID PRN 03/15/17 03/15/17 History Multiple Vitamins W/ Minerals 1 tab PO DAILY 03/15/17 03/15/17 History [Multivitamin Adults] Ondansetron HCl [Zofran 4 MG TAB] 4 mg PO Q4HR PRN 03/15/17 03/15/17 History Prochlorperazine TAB* [Compazine 1 tab PO Q6HR PRN 03/15/17 03/15/17 History Tab*] Omeprazole CAP* [Prilosec CAP* 20 20 mg PO BID #60 cap 03/17/17 Rx MG] DISCHARGE FOLLOW UP: Office visit and labs 03/22, will call with time HOSPITAL COURSE: David was admitted from our office after presenting with melena and hematemesis in the setting of recent initiation of lovenox for a DVT. His lovenox was held, an IVC filter was placed, and he was started on a protonix drip. He underwent upper endoscopy which did reveal a small nonbleeding ulcer. His ptt was elevated on admission suggesting that his lovenox may have been supratherapeutic. Dr. Eisenberg recommended discharge on 90 mg sc bid with checking of a level in 5 days, however David was very nervous about going back on any anticoagulation. Given that he has an IVC filter he does have some level of protection from this. He did eventually agree to a compromise of treating with PPI for 1 week (through ) and if no bleeding and feeling ok resuming lovenox at 90 mg bid. He has not had any further melena since admission. We will call him with an appointment on Sunday. >30 mins spent on this discharge.
[2017-03-17 08:34] VITALS: BP 115/67
[2017-03-17] MEDS ORDERED: Ondansetron INJ* 2 MG/ML VIAL IV ONE (09:23)
[2017-03-17] MEDS ORDERED: Ondansetron INJ* 2 MG/ML VIAL ONE (09:24)
[2017-03-17] MEDS: clonazePAM TAB(*) 1 MG PO SCH (09:32)
[2017-03-17] MEDS: CMC: Escitalopram (NF) 10 MG TAB PO SCH (09:32)
[2017-03-17] MEDS: BuPROPion XL* 150 MG TAB.XL PO SCH (09:32)
--- NOTE | 2017-03-18 02:21 | PRO ---
DATE: 03/16/17 REFERRING PHYSICIANS : Shanon Choi; Eyad Sinha NP PROCEDURE: Upper gastrointestinal endoscopy down bypass jejunal limb to 80 cm where bile seen; flexible sigmoid to upper sigmoid, unprepped INDICATION: This 51-year-old man complained of bloody stool and within an hour hematemesis. Stool was dark and the emesis somewhat coffee ground in nature. His initial hemoglobin was unchanged from baseline a few days ago, but then fell significantly from 9.0 to 6.5 and he was transfused 1 unit. His BUN at presentation was 23 falling to 15. He is on immune stimulator, nivolumab and thus a sigmoidoscopy was planned to rule out colitis. ENDOSCOPIST: Julien Lancaster MD MEDICATIONS: Midazolam 8.5, meperidine 50. FINDINGS: He is a morbidly obese, chronically ill-appearing middle-aged man in no distress. EGD: Larynx - symmetric, limited views. Esophagus - easily entered and mucosa is normal in the upper and mid esophagus with the EG junction at 39. There is some mild erythema about the EG junction, which is loose but without a stricture or deep erosions. The changes are just minimal erythema and granularity. Gastric pouch - empty and without blood or erosions. Gastrojejunal anastomosis - much saliva was lavaged clear and this revealed a white medium depth, slightly ovoid ulcer with a clean white base. There were no stigmata of bleeding whatsoever around this. There was no blood. There was some minimal erythema at other orientations around the anastomotic area but nothing appearing suspicious. Jejunal limb - appeared entirely normal and was run for 60 cm, the last 20 cm of which showed bile staining, although definitively the Raphael-en-Y connection was not seen. On slow withdrawal, there were no additional findings. Again, no acute bleeding was seen. Flexible sigmoidoscopy - the patient was turned and the scope inserted and encountered cords of melena slightly adherent to the wall. The rectal mucosa appeared normal with a normal vascular pattern. It was smooth. No polyps or diverticula were seen with about 15% to 20% of the surface area obscured. The scope was passed through the rectosigmoid and into the sigmoid reaching the upper sigmoid. Some areas were clear of stool /melena. No colitis and no fresh bleeding was seen. IMPRESSION: 1. Minimal erosive GERD. 2. Anastomotic ulcer - without stigmata. 3. Normal gastric pouch and bypass limb. 4. Normal flexible sigmoidoscopy. 5. Gastrointestinal bleed - source unclear as the ulcer did not have any stigmata. The BUN was elevated somewhat and this does favor an upper source and will hold off on a colonoscopy as it would be with very lower yield. Bleeding from the bypass stomach or anastomosis is a possibility. For the moment, management plan now includes an umbrella and reevaluation of anticoagulation choices and monitoring. Dr. Eisenberg felt that the Lovenox effect was probably excessive and a lower dose is an option. [id number]/[facility] #: [id number] [facility]
== END 2017-03-17 12:20 | disposition home or self-care (01) | DRG 253 ==
LOC: SSU 13:42
PROVIDERS: ADMIT Internal Medicine Hematology & Oncology; ATTEND Internal Medicine Hematology & Oncology
PROC: 06H03DZ Insertion of Intraluminal Device into Inferior Vena Cava, Percutaneous Approach (ICD-10-PCS; 2017-03-15)
PROC: 0DJ08ZZ Inspection of Upper Intestinal Tract, Via Natural or Artificial Opening Endoscopic (ICD-10-PCS; principal; 2017-03-16)
PROC: 0DJD8ZZ Inspection of Lower Intestinal Tract, Via Natural or Artificial Opening Endoscopic (ICD-10-PCS; 2017-03-16)
PROC: 30233N1 Transfusion of Nonautologous Red Blood Cells into Peripheral Vein, Percutaneous Approach (ICD-10-PCS; 2017-03-16)
DX: K92.0 Hematemesis (principal); I82.5Z2 Chronic embolism and thrombosis of unspecified deep veins of left distal lower extremity; C79.31 Secondary malignant neoplasm of brain; C64.1 Malignant neoplasm of right kidney, except renal pelvis; D64.9 Anemia, unspecified; K28.9 Gastrojejunal ulcer, unspecified as acute or chronic, without hemorrhage or perforation; K21.9 Gastro-esophageal reflux disease without esophagitis; E66.01 Morbid (severe) obesity due to excess calories; F41.9 Anxiety disorder, unspecified; R79.1 Abnormal coagulation profile; F32.9 Major depressive disorder, single episode, unspecified; Z83.3 Family history of diabetes mellitus; Z98.84 Bariatric surgery status; Z87.01 Personal history of pneumonia (recurrent); Z82.49 Family history of ischemic heart disease and other diseases of the circulatory system; Z98.49 Cataract extraction status, unspecified eye; Z87.442 Personal history of urinary calculi; Z68.37 Body mass index [BMI] 37.0-37.9, adult
CPT/HCPCS: 36415; 37191; 80053; 82272; 83735; 85025; 85610; 85730; 86850; 86900; 86901; 86922; 94760; 99223; 99232; 99239; A9270-GY; C1880; J1642; J1644; J2001; J2250; J2405; J2704; J2997; J3010; J3490; P9040

== ENCOUNTER 2017-04-01 18:58 | Inpatient (IN) | payer BC ==
[2017-04-01 19:42] LABS: PCO2 Arterial 27 mmHg (35-45)
[2017-04-01 20:20] LABS: Hematocrit 30 % (42-52); Hemoglobin 9.3 g/dl (14.0-18.0); Mean Corpuscular HGB Conc 31 g/dl (31-36); Mean Corpuscular Hemoglobin 26 pg (27-31); Mean Corpuscular Volume 82 fL (80-94); Mean Platelet Volume 7 um3 (7.4-10.4); Red Blood Count 3.64 10^6/ul (4.0-5.4); Red Cell Distribution Width 18 % (10.5-15)
[2017-04-01 20:31] LABS: Albumin 3.4 g/dL (3.2-5.2); BUN/Creatinine Ratio 13.9 (8-20); Calcium 8.5 mg/dL (8.6-10.3); EGFR African American 92.7 (>60); EGFR Non-African American 72.1 (>60); Globulin 3.2 g/dL (2-4); Potassium 3.8 mmol/L (3.5-5.0); Total Bilirubin 0.3 mg/dL (0.2-1.0); Total Protein 6.6 g/dL (6.4-8.9)
[2017-04-01] MEDS ORDERED: Iodixanol* (CONTRAST) 320 MG/ML 100 ML SDV IV ONE (20:34)
[2017-04-01 20:38] LABS: Troponin I 1.05 ng/mL (<0.04)
[2017-04-01] MEDS ORDERED: Aspirin TAB* 325 MG PO ONE (20:49)
[2017-04-01] MEDS ORDERED: Ondansetron INJ* 2 MG/ML VIAL ONE (20:49)
[2017-04-01] MEDS ORDERED: Morphine INJ* 2 MG/ML 1 ML SYRINGE ONE (20:49)
[2017-04-01] MEDS ORDERED: Morphine INJ* 2 MG/ML 1 ML SYRINGE IV ONE (20:50)
[2017-04-01] MEDS ORDERED: Ondansetron INJ* 2 MG/ML VIAL IV ONE (20:50)
[2017-04-01] MEDS ORDERED: Aspirin Low Dose CHEW TAB* 81 MG ONE (20:51)
--- NOTE | 2017-04-01 20:53 | RAD ---
Indication: Shortness of breath. Single frontal view of the chest performed at 1945 hours was reviewed. Comparison is made with previous exam dated March 01, 2017. Volume loss in the right hemithorax is likely right base atelectasis. Lungs are otherwise clear. IMPRESSION: VOLUME LOSS RIGHT LUNG BASE LIKELY DUE TO ATELECTASIS. NO DEFINITE PNEUMONIA IS IDENTIFIED.
--- NOTE | 2017-04-01 21:19 | RAD ---
Indication: Pulmonary embolus. Contrast: Administered 100.1 ml of VISAPAQUE 320 mgi/ml CTA of the chest was performed after IV contrast administration. Coronal and sagittal reconstructed images were obtained. Pulmonary arterial tree is well opacified. Filling defects are noted in left upper lobe and left segmental pulmonary artery, left lower lobe are and segmental pulmonary arteries. Filling defect is noted in the right main pulmonary artery. There is a right hilar adenopathy noted. There is likely a right lower lobe mass. Right lower lobe and right middle lobe atelectasis is noted. There is prevascular space adenopathy consistent with metastatic disease. This was noted previously. The visualized abdominal organs are unremarkable. IMPRESSION: Multiple large pulmonary emboli are noted in the left and right main, lobar and segmental arteries. Right infrahilar mass persists with right lower lobe atelectasis. Prevascular space lymphadenopathy is noted. Findings discussed with Dr. Calderon at, 0 hours
[2017-04-01] MEDS ORDERED: traZODone TAB* 50 MG TAB PO PRN (22:05)
[2017-04-01] MEDS ORDERED: Meclizine TAB* 12.5 MG PO PRN (22:05)
[2017-04-01] MEDS ORDERED: ALPRAZolam TAB* 0.5 MG PO PRN (22:05)
[2017-04-01] MEDS ORDERED: Ondansetron TAB* 4 MG PO PRN (22:05)
[2017-04-01] MEDS ORDERED: Prochlorperazine TAB* 10 MG PO PRN (22:05)
[2017-04-01] MEDS ORDERED: Heparin VIAL(*) 5000 UNITS/ML VIAL (FIVE THOUSAND) IV PRN (22:22)
[2017-04-01] MEDS: Heparin DRIP 25,000 UNITS(*) 25,000 UNITS/500 ML BAG IV SCH (22:47)
[2017-04-02] MEDS: Pantoprazole IV* 80 MG in NS 0.9% 250 ML* 250 ML IVPB SCH ×3 (00:19→19:46)
[2017-04-02 00:39] LABS: Hematocrit 28 % (42-52); Hemoglobin 8.6 g/dl (14.0-18.0)
--- NOTE | 2017-04-02 03:04 | HP ---
HISTORY AND PHYSICAL: DATE OF ADMISSION: 04/01/17 CHIEF COMPLAINT: Shortness of breath. HISTORY OF PRESENT ILLNESS: The patient is a 51-year-old gentleman with a past medical history significant for renal cell carcinoma, metastatic to the lymph nodes, lung, and brain, who presents to [facility] with a chief complaint of significant shortness of breath that started some time early this morning. The patient states that it suddenly happened where if he walks just a 12 steps, he became so shortness of breath, he thought he was going to pass out. He has substernal chest pain associated with it, but it was very minimal. Eventually he called his niece at 9 p.m. because he became so concerned and they brought him to the emergency room. In the emergency room, the patient was found to have bilateral pulmonary embolism. It should be noted that the patient was known to have a DVT, was started on Lovenox a couple of weeks ago for same, then developed an upper GI bleed, which was secondary to a gastric ulcer. He subsequently had his Lovenox stopped and having an IVC filter placed. Apparently upon discharge, on March 17, he was supposed to restart his Lovenox at 90 mg twice a day after 1 week, but this was not done and it is not clear why. He is also supposed on a PPI for a week and he said he never was, this will have to be clarified at a later date. PAST MEDICAL HISTORY: He has a past medical history noted for the renal cell carcinoma with mets to the lymph nodes, lungs, and brain; DVT; bleeding gastric ulcer; anxiety; urolithiasis; and GERD. PAST SURGICAL HISTORY: Significant for right nephrectomy for RCCa, gastric bypass, and cataract extraction. CURRENT MEDICATIONS: As follows: 1. Bupropion XL 300 mg in the morning. 2. Xanax 0.5 mg 3 times a day as needed. 3. Meclizine 1 tablet 4 times a day as needed. 4. Lexapro 20 mg daily. 5. Decadron 1 tablet in the morning. 6. Trazodone 150 mg at bedtime. 7. Clonazepam 1 mg 3 times a day as needed. 8. Compazine 1 tab every 6 hours as needed. 9. Zofran 4 mg every 4 hours as needed. 10. Omeprazole 20 mg twice a day. 11. Multivitamin 1 tablet a day. ALLERGIES: He has no known drug allergies. FAMILY HISTORY: Significant only for coronary artery disease and diabetes. SOCIAL HISTORY: No tobacco. Rare alcohol. No recreational drug use. . He was a mailing clerk. Full code. His , Isabel Teresa, , is his health care proxy. REVIEW OF SYSTEMS: A 14-point review of systems was completed with the patient. All pertinent positives and negatives are in the history of present illness, otherwise is negative. PHYSICAL EXAMINATION GENERAL: A pleasant gentleman lying in bed, in no acute distress. VITAL SIGNS: Blood pressure 120/67, pulse ox 100% on 3 L, respiratory rate 18 beats per minute, heart rate 96 beats per minute, and temperature is 98 degrees. HEENT: Normocephalic, atraumatic. Pupils equal, round, and reactive to light. Moist mucous membranes. NECK: Supple. No JVD, bruits, palpable thyroid, or lymphadenopathy. CHEST: Clear to auscultation and percussion bilaterally. CARDIOVASCULAR: S1 and S2 appreciated. Regular rate and rhythm. ABDOMEN: Obese. Positive bowel sounds in all 4 quadrants. Soft, nontender, and nondistended. EXTREMITIES: No cyanosis, clubbing, or edema; +2 peripheral pulses bilaterally. NEUROLOGIC: Alert and oriented x3. Moves all extremities. SKIN: No rashes. No abnormalities. DIAGNOSTIC STUDIES/LAB DATA: White count 9, hemoglobin 9.3, hematocrit 30, and platelets 271. Sodium 140, potassium 3.8, chloride 113, CO2 22, BUN 15, creatinine 1.08, and glucose is 105. Troponin 1.05. BNP 105. His D-dimer is greater than 1050. ABG shows a pH of 7.44, pCO2 27, pO2 57, and bicarb is 21. Chest x-ray was interpreted by Radiology as volume loss right lung base likely due to atelectasis, no definite pneumonia identified. CTA of the chest shows multiple but large pulmonary emboli are noted in the left lung, right main lobe, and segmental arteries, right infrahilar mass persists with right lower lobe atelectasis, perivascular space lymphadenopathy was noted. EKG shows sinus tachycardia, 115 beats per minute, normal axis, and nonspecific ST- T wave changes. ASSESSMENT AND PLAN: 1. Pulmonary embolism: This maybe somewhat difficult to manage. They have already spoken to Hematology/Oncology. We agreed to start the patient on heparin with no initial bolus. I will place him on a Protonix drip prophylactically with his history of gastric bleeding ulcer, but this was apparently cauterized and he has been stable with no evidence of bleeding. I will check an H and H q.4 hours as well. He does have some bleeding in his rectum, but he has a hemorrhoid, so I am not overtly concerned about that. I will place him in the ICU as he will need very close observation as he is somewhat tenuous, although stable at this point. 2. Depression/anxiety: Continue Celexa, Wellbutrin, Klonopin, and Xanax. 3. Renal cell carcinoma with mets: He is supposed to be on Opdivo again tomorrow. We will defer this to Oncology. 4. DVT prophylaxis: He will be on a heparin drip. 5. FEN: Regular diet. 6. Code status: The patient is a full code. TIME SPENT: Over 85 minutes was spent on this H and P; more than 45 minutes of which was spent in direct [id number] contact with the patient, evaluation, physical exam, counseling, and coordination of care. CC: Dr. Atkins; Eyad Sinha NP * [id number]/[facility] #: [id number] [facility]
[2017-04-02 05:44] LABS: Hematocrit 28 % (42-52); Hemoglobin 8.7 g/dl (14.0-18.0)
[2017-04-02 08:28] LABS: Hematocrit 26 % (42-52); Hemoglobin 8.2 g/dl (14.0-18.0)
[2017-04-02] MEDS ORDERED: Omeprazole CAP* 20 MG PO SCH (09:00)
[2017-04-02] MEDS: Citalopram TAB* 40 MG PO SCH (09:52)
[2017-04-02] MEDS: Dexamethasone TAB* 1 MG PO SCH (09:52)
[2017-04-02] MEDS: BuPROPion XL* 300 MG TAB.XL PO SCH (09:52)
[2017-04-02] MEDS: Multivitamins/Minerals TAB PO SCH (09:52)
[2017-04-02] MEDS: clonazePAM TAB(*) 1 MG PO SCH ×3 (09:52→20:41)
[2017-04-02 12:24] LABS: Hematocrit 26 % (42-52); Hemoglobin 8.2 g/dl (14.0-18.0)
[2017-04-02] MEDS ORDERED: Acetaminophen TAB* 325 MG PO PRN (13:25)
[2017-04-02] MEDS: Heparin DRIP 25,000 UNITS(*) 25,000 UNITS/500 ML BAG IV SCH (15:17)
[2017-04-02 16:32] LABS: Hematocrit 28 % (42-52); Hemoglobin 8.7 g/dl (14.0-18.0)
[2017-04-03] MEDS: Pantoprazole IV* 80 MG in NS 0.9% 250 ML* 250 ML IVPB SCH ×2 (04:48→14:30)
[2017-04-03 05:12] LABS: Hematocrit 25 % (42-52); Hemoglobin 7.9 g/dl (14.0-18.0); Mean Corpuscular HGB Conc 31 g/dl (31-36); Mean Corpuscular Hemoglobin 25 pg (27-31); Mean Corpuscular Volume 81 fL (80-94); Mean Platelet Volume 8 um3 (7.4-10.4); Red Blood Count 3.15 10^6/ul (4.0-5.4); Red Cell Distribution Width 18 % (10.5-15); White Blood Count 7.2 10^3/ul (3.5-10.8)
[2017-04-03 05:23] LABS: BUN/Creatinine Ratio 11.1 (8-20); Calcium 8.1 mg/dL (8.6-10.3); EGFR African American 114.4 (>60); Potassium 3.6 mmol/L (3.5-5.0)
[2017-04-03 06:21] LABS: Hematocrit 27 % (42-52); Hemoglobin 8.4 g/dl (14.0-18.0)
[2017-04-03] MEDS: clonazePAM TAB(*) 1 MG PO SCH ×3 (08:12→20:27)
[2017-04-03] MEDS: Multivitamins/Minerals TAB PO SCH (08:12)
[2017-04-03] MEDS: Citalopram TAB* 40 MG PO SCH (08:13)
[2017-04-03] MEDS: BuPROPion XL* 300 MG TAB.XL PO SCH (08:13)
[2017-04-03] MEDS: Dexamethasone TAB* 1 MG PO SCH (08:13)
[2017-04-03] MEDS: Heparin DRIP 25,000 UNITS(*) 25,000 UNITS/500 ML BAG IV SCH (11:04)
[2017-04-03] MEDS: Enoxaparin(*) 100 MG/ML SYR SUBCUT SCH ×2 (13:51→23:36)
[2017-04-04] MEDS: Pantoprazole IV* 80 MG in NS 0.9% 250 ML* 250 ML IVPB SCH ×2 (01:01→12:30)
[2017-04-04 05:52] LABS: Hematocrit 26 % (42-52); Hemoglobin 8.1 g/dl (14.0-18.0); Mean Corpuscular HGB Conc 31 g/dl (31-36); Mean Corpuscular Hemoglobin 25 pg (27-31); Mean Corpuscular Volume 80 fL (80-94); Mean Platelet Volume 8 um3 (7.4-10.4); Red Blood Count 3.22 10^6/ul (4.0-5.4); Red Cell Distribution Width 18 % (10.5-15); White Blood Count 7.6 10^3/ul (3.5-10.8)
[2017-04-04 07:24] VITALS: BP 109/62
[2017-04-04] MEDS: Dexamethasone TAB* 1 MG PO SCH (07:51)
[2017-04-04] MEDS: Citalopram TAB* 40 MG PO SCH (07:51)
[2017-04-04] MEDS: clonazePAM TAB(*) 1 MG PO SCH ×2 (07:51→13:08)
[2017-04-04] MEDS: BuPROPion XL* 300 MG TAB.XL PO SCH (07:51)
[2017-04-04] MEDS: Multivitamins/Minerals TAB PO SCH (07:51)
[2017-04-04] MEDS: Enoxaparin(*) 100 MG/ML SYR SUBCUT SCH (12:27)
--- NOTE | 2017-04-04 16:21 | DS ---
CC: Eyad Sinha NP, Gunjan * DISCHARGE SUMMARY: DATE OF ADMISSION: 04/01/17 DATE OF DISCHARGE: 04/04/17 DISCHARGE DIAGNOSES: 1. Recurrent pulmonary embolism: Discharged back on Lovenox. 2. Gastrointestinal bleed: Related to gastric ulcer, resolved for sometime. 3. Metastatic renal cell carcinoma: Will resume therapy after discharge. 4. Mixed depression/anxiety: No change in medications. DISCHARGE MEDICATIONS: 1. Acetaminophen 650 mg p.o. q.6 hours p.r.n. headache. 2. Lovenox 100 mg p.o. q.12 hours (to be taken at 11 a.m. and 11 p.m. daily). 3. Trazodone 150 mg p.o. q.h.s. p.r.n. insomnia. 4. Dexamethasone 1 mg q.a.m. 5. Clonazepam 1 mg p.o. t.i.d. 6. Wellbutrin 300 mg p.o. q.a.m. 7. Multivitamin 1 tab daily. 8. Meclizine 1 tab p.o. 4 times a day p.r.n. dizziness. 9. Lexapro 20 mg p.o. daily. 10. Prochlorperazine 10 mg q.6 hours p.r.n. nausea. 11. Alprazolam 0.5 mg t.i.d. p.r.n. anxiety. 12. Ondansetron 4 mg p.o. q.4 hours p.r.n. nausea. 13. Omeprazole 20 mg p.o. b.i.d. HOSPITAL COURSE: Please see admission note for full H and P; however, briefly, Mr. Teresa is well known to our service due to his unfortunate diagnosis of metastatic renal cell carcinoma, most recently stable on imaging, being treated with nivolumab. Mr. Teresa was admitted on 03/01/17 with pneumonia and subsequently developed DVT. He was placed on Lovenox at discharge on 03/05/17, and unfortunately was readmitted to the hospital on 03/15/17 with a GI bleed. At that time, workup revealed a non-bleeding ulcer and he resolved with medical management. He was discharged on 03/17/17, following placement of a Lori filter and refusing further Lovenox. At that time, he was to followup in the office within 1 week's time to evaluate further anticoagulation; however, the patient refused once again. He presented to the ER on 04/01/17, with increased shortness of breath and had a recurrent PE. During admission due to his concern for GI bleed, he was placed on heparin as well as a Protonix drip with improvement in his shortness of breath after a short period of time. Yesterday , on 04/03/17, Dr. Atkins, the patient's primary oncologist discussed the patient 's condition and plan of care at length. The patient finally agreed to resumption of Lovenox stating understanding of respirations benefits. The patient was placed on a decreased dose due to his weight of 100 mg p.o. b.i.d. subcutaneously and received his first dose around 1 o'clock on 04/03/17. Today he feels quite well, though admits to some shortness of breath with exertion. He denies chest pain or pressure and understands the rationale for continuing Lovenox at this time. He will be discharged home this afternoon, again with Lovenox 100 mg twice a day , and I have encouraged him to start slowly moving towards . They will give his next dose around noon today and then this evening he is to take it at 11:00. Subsequently, tomorrow after his 11 o'clock dose, he will have an in- home lab draw for his anti-Xa level around 3 to 4 p.m. Based on this level, the patient's dose may be adjusted as necessary. Plan of care was discussed at length with Mr. Teresa, who denies further questions. He was seen in consultation by social work in regards to difficulty with transportation and multiple missed office visits. He will follow up with his primary care provider, ALEXIA Sinha as needed and will see Dr. Atkins in followup on 04/16/17 at 11 a.m. at the [facility] to discuss resumption of immunotherapy and toleration of Lovenox. He has been encouraged to call should he develop any signs of bleeding and not to stop his Lovenox without discussing with the practice. I reviewed signs and symptoms of bleeding at length. TIME SPENT: Greater than 30 minutes spent with greater than 50% in face-to- face counseling. CHET POWELL, DIRECTOR OF CAMPUS RECREATION [id number]/[facility] #: [id number] [facility]
== END 2017-04-04 14:00 | disposition home or self-care (01) | DRG 134 ==
LOC: ED 18:58 → ICU 22:11 → MED 04-03 13:10
PROVIDERS: ADMIT Internal Medicine; ATTEND Internal Medicine Hematology & Oncology
DX: I26.99 Other pulmonary embolism without acute cor pulmonale (principal); C77.9 Secondary and unspecified malignant neoplasm of lymph node, unspecified; C78.00 Secondary malignant neoplasm of unspecified lung; C64.9 Malignant neoplasm of unspecified kidney, except renal pelvis; C79.31 Secondary malignant neoplasm of brain; J98.11 Atelectasis; F41.8 Other specified anxiety disorders; K21.9 Gastro-esophageal reflux disease without esophagitis; Z86.718 Personal history of other venous thrombosis and embolism; Z98.84 Bariatric surgery status; Z79.899 Other long term (current) drug therapy; Z82.49 Family history of ischemic heart disease and other diseases of the circulatory system
CPT/HCPCS: 36415; 36600; 71010; 71275; 80048; 80053; 82803; 83605; 83880; 84484; 84520; 85014; 85018; 85025; 85379; 85610; 85730; 87641; 93005; 94760; 99239; A9270-GY; J1650; J2270; J2405; Q9967

== ENCOUNTER 2017-11-05 15:41 | Emergency (ER) | payer BC ==
[2017-11-05] MEDS ORDERED: Ondansetron INJ* 2 MG/ML VIAL IV ONE (16:14)
[2017-11-05] MEDS ORDERED: Pantoprazole IV* 40 MG IV ONE (16:14)
[2017-11-05 17:02] LABS: Hematocrit 31 % (42-52); Hemoglobin 9.2 g/dl (14.0-18.0); Mean Corpuscular HGB Conc 30 g/dl (31-36); Mean Corpuscular Hemoglobin 21 pg (27-31); Mean Corpuscular Volume 70 fL (80-94); Mean Platelet Volume 8 um3 (7.4-10.4); Platelet Count 273 10^3/ul (150-450); Red Blood Count 4.44 10^6/ul (4.0-5.4); Red Cell Distribution Width 20 % (10.5-15); White Blood Count 9.7 10^3/ul (3.5-10.8)
[2017-11-05 17:05] LABS: INR 0.94 (0.77-1.02)
[2017-11-05 17:07] LABS: EGFR Non-African American 51.9 (>60)
[2017-11-05 17:39] LABS: ABS Basophils 0 10^3/ul (0-0.2); ABS Eosinophils 0.2 10^3/ul (0-0.6); ABS Lymphocytes 1.1 10^3/ul (1.0-4.8); ABS Monocytes 0.6 10^3/ul (0-0.8); ABS Neutrophils 7.8 10^3/ul (1.5-7.7); ABS Nucleated RBC 0 10^3/ul; Eosinophil % 1.8 % (0-6); Lymphocyte % 11.4 % (25-47); Nucleated Red Blood Cells % 0
[2017-11-05 20:13] VITALS: BP 133/87
--- NOTE | 2017-11-05 21:02 | ED ---
Carmela Stevens Julia, scribed for Alexander Tucker MD on 11/05/17 at 1645 . Abdominal Pain/Male - HPI Summary HPI Summary: This patient is a 52 year old M BIBA to [facility] with a chief complaint of hematemesis after chemotherapy around 15:00 today. Patient reports about 1 cup bright red blood in vomit without food. Patient denies nausea. Patient has a history of ulcers. - History of Current Complaint Chief Complaint: EDGIBleed Stated Complaint: VOMITING BLOOD Time Seen by Provider: 11/05/17 16:06 Hx Obtained From: Patient Onset/Duration: Sudden Onset Pain Intensity: 0 Pain Scale Used: 0-10 Numeric Aggravating Factor(s): Other: - chemotherapy Associated Signs And Symptoms: Positive: Vomiting - with bright red blood - Allergies/Home Medications Allergies/Adverse Reactions: Allergies Allergy/AdvReac Type Severity Reaction Status Date / Time No Known Allergies Allergy Verified 06/15/17 10:34 PMH/Surg Hx/FS Hx/Imm Hx Endocrine/Hematology History: Reports: Hx Anemia - MILD ANEMIA PER DR ATKINS Denies: Hx Anticoagulant Therapy, Hx Diabetes, Hx Systemic Lupus Erythematosus, Hx Sickle Cell Disease, Hx Thyroid Disease Cardiovascular History: Reports: Other Cardiovascular Problems/Disorders - POWERPORT Denies: Hx Angina, Hx Congestive Heart Failure, Hx Hypertension, Hx Pacemaker /ICD Respiratory History: Reports: Hx Lung Cancer, Hx Pneumonia, Hx Pulmonary Embolism - this visit diagnosis, Hx Sleep Apnea - corrected after bariatric surgery & weight loss - does not use CPAP, Other Respiratory Problems/Disorders - Renal carcinoma met to Lt lung ID'd in December 2015 Denies: Hx Asthma, Hx Chronic Obstructive Pulmonary Disease (COPD) GI History: Reports: Hx Gastroesophageal Reflux Disease, Other GI Disorders - raquel en y. Hemorrhoids. 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 bariatric raquel-en- y 2011,. bilat cataract,. esophageal biopsy,. kidney stones,. RADIOSURGERY/ GAMMA KNIFE TO BRAIN,. POWER PORT PLACEMENT;. IVC FILTER ([place] 1.5T) [facility]. ORAL EXTRACTIONS; Hx Anesthesia Reactions: No Infectious Disease History: No Infectious Disease History: Denies: Hx Hepatitis, Hx Human Immunodeficiency Virus (HIV), History Other Infectious Disease, Traveled Outside the [place] in Last 30 Days - Family History Known Family History: Positive: Cardiac Disease, Hypertension, Diabetes - Social History Alcohol Use: Rare Alcohol Amount: 1 beer every few months Hx Substance Use: No Substance Use Type: Reports: None Hx Tobacco Use: No Smoking Status (MU): Never Smoked Tobacco Have You Smoked in the Last Year: No Review of Systems Negative: Fever Positive: Vomiting - bright red blood. Negative: Nausea All Other Systems Reviewed And Are Negative: Yes Physical Exam - Summary Physical Exam Summary: Appearance: The patient is well-nourished in no acute distress and in no acute pain. Skin: The skin is warm and dry and skin color reflects adequate perfusion. HEENT: The head is normocephalic and atraumatic. The pupils are equal and reactive. The conjunctivae are clear and without drainage. Nares are patent and without drainage. Mouth reveals moist mucous membranes and the throat is without erythema and exudate. The external ears are intact. The ear canals are patent and without drainage. The tympanic membranes are intact. Neck: the neck is supple with full range of motion and non-tender. There are no carotid bruits. There is no neck vein distension. Respiratory: Chest is non-tender. Lungs are clear to auscultation and breath sounds are symmetrical and equal. Cardiovascular: Heart is regular rate and rhythm. There is no murmur or rub auscultated. There is no peripheral edema and pulses are symmetrical and equal. Abdomen: The abdomen is soft and non-tender. There are normal bowel sounds heard in all four quadrants and there is no organomegaly palpated. Musculoskeletal: There is no back tenderness noted. Extremities are non-tender with full range of motion. There is good capillary refill. There is no peripheral edema or calf tenderness elicited. Neurological: Patient is alert and oriented to person, place and time. The patient has symmetrical motor strength in all four extremities. Cranial nerves are grossly intact. Deep tendon reflexes are symmetrical and equal in all four extremities. Psychiatric: The patient has an appropriate affect and does not exhibit any anxiety or depression. Triage Information Reviewed: Yes Vital Signs On Initial Exam: Initial Vitals Temp Pulse Resp BP Pulse Ox 98.7 F 94 16 135/89 94 11/05/17 15:42 11/05/17 15:42 11/05/17 15:42 11/05/17 15:42 11/05/17 15:42 Vital Signs Reviewed: Yes - [place] Coma Scale Coma Scale Total: 15 Diagnostics - Vital Signs Vital Signs Temp Pulse Resp BP Pulse Ox 11/05/17 15:42 98.7 F 94 16 135/89 94 - Laboratory Lab Results: Lab Results 11/05/17 Range/Units 16:02 POC Glucose (mg/dL) 351 H (70-100) mg/dL Result Diagrams: 11/05/17 16:40 11/05/17 16:40 Lab Statement: Any lab studies that have been ordered have been reviewed, and results considered in the medical decision making process. Abdominal Pain Fem Course/Dx - Course Course Of Treatment: Mr. Teresa presented to the ED after having vomited up bright red blood shortly after his chemotherapy. He was still slightly nauseated on arrival. He denied any recent melena or hematachezia. His Hgb was 9 which is normal for him. He had a recent GI Bleed (8 months ago) and had an EGD which showed an ulcer which was not bleeding. He was on lovenox then and is no longer. He was opbserved here and had no further bleeding and his BUN was normal. I recommended close F/U and return immediately for any further bleeding. - Diagnoses Provider Diagnoses: Hematemesis - Provider Notifications Discussed Care Of Patient With: Julien Lancaster - gastroenteology Time Discussed With Above Provider: 19:10 Instructed by Provider To: Other - agrees to discharge Discharge - Discharge Plan Condition: Stable Disposition: HOME Prescriptions: Omeprazole CAP* [Prilosec CAP* 20 MG] 20 mg PO BID #20 paul. Patient Education Materials: Hematemesis (ED) Referrals: Eyad Sinha, [facility] [Primary Care Provider] - Additional Instructions: Patient is instructed to follow up with Dr. Atkins this week. Patient is given prescription for omeprazole RETURN TO THE EMERGENCY DEPARTMENT FOR CHANGING OR WORSENING SYMPTOMS. The documentation as recorded by the Carmela burroughs Julia accurately reflects the service I personally performed and the decisions made by me, Alexander Tucker MD.
== END 2017-11-05 20:12 | disposition home or self-care (01) ==
LOC: ED 15:41
DX: K92.0 Hematemesis (principal); Z85.828 Personal history of other malignant neoplasm of skin; Z92.21 Personal history of antineoplastic chemotherapy
CPT/HCPCS: 36415; 80053; 85025; 85610; 85730; 86850; 86900; 86901; 96374; 96375; 99283; J2405

== ENCOUNTER 2018-02-06 18:43 | Emergency (ER) | payer BC ==
--- NOTE | 2018-02-06 20:27 | RAD ---
Indication: Fever. On chemotherapy for renal cell carcinoma. Comparison: October 12, 2017 CT. Technique: Upright AP 2012 hours Report: Linear atelectasis and bronchiectasis at the RIGHT lung base similar to the prior CT. Negative for pleural effusion or pneumothorax. Negative for cardiomegaly. Unremarkable central pulmonary vasculature. Prominent RIGHT hilum corresponding with lymphadenopathy and prior CT. Tip of RIGHT chest port at level of superior vena cava RIGHT atrial junction. IMPRESSION: No compelling evidence for pneumonia. Chronic atelectasis or scarring at the RIGHT lung base. RIGHT mediastinal lymphadenopathy as on the prior CT.
[2018-02-06 21:03] LABS: ABS Basophils 0.1 10^3/ul (0-0.2); ABS Eosinophils 0.1 10^3/ul (0-0.6); ABS Lymphocytes 1.2 10^3/ul (1.0-4.8); ABS Monocytes 0.8 10^3/ul (0-0.8); ABS Nucleated RBC 0 10^3/ul; Eosinophil % 1.2 % (0-6); Hematocrit 30 % (42-52); Mean Corpuscular HGB Conc 30 g/dl (31-36); Mean Corpuscular Hemoglobin 21 pg (27-31); Mean Corpuscular Volume 70 fL (80-94); Mean Platelet Volume 7.5 um3 (7.4-10.4); Nucleated Red Blood Cells % 0; Platelet Count 292 10^3/ul (150-450); Red Blood Count 4.27 10^6/ul (4.0-5.4); Red Cell Distribution Width 19 % (10.5-15); White Blood Count 10.2 10^3/ul (3.5-10.8)
[2018-02-06 21:17] LABS: EGFR Non-African American 62.4 (>60)
[2018-02-06 22:09] LABS: Urine Appearance Clear; Urine Blood Negative (Negative); Urine Color Yellow; Urine Ketones Negative (Negative); Urine Protein 1+(30 mg/dL) (Negative); Urine Specific Gravity 1.021 (1.010-1.030); Urine Urobilinogen Negative (Negative)
[2018-02-06 22:52] VITALS: BP 136/76
--- NOTE | 2018-02-07 01:15 | ED ---
George Stevens Nilda, scribed for Sara Herrera MD on 02/06/18 at 2011 . HPI Febrile Illness - HPI Summary HPI Summary: This patient is a 52 year old M presenting to [facility] accompanied by with a chief complaint of constant fever (100.7 F max) today. Pt called Dr. Atkins who advised pt come to ED for further evaluation, per triage note. The patient rates the pain 0/10 in severity. Symptoms aggravated and alleviated by nothing. Patient denies nausea, vomiting, rhinorrhea, and any other symptoms. Last chemo treatment was 2 weeks and 2 days ago for right kidney cancer which metastasized to brain, lung, and lymphatic system, per pt. Pt states he no longer has kidney tumor s/p nephrectomy in 2007, but the metastasized cancers remain. - History of Current Complaint Chief Complaint: EDFever Time Seen by Provider: 02/06/18 19:53 Hx Obtained From: Patient Onset/Duration: Started Hours Ago, Still Present Timing: Constant Temperature: 100.7 F - max Pain Intensity: 0 Pain Scale Used: 0-10 Numeric Aggravating Factors: Nothing Alleviating Factors: Nothing Associated Signs and Symptoms: Other: - Patient denies nausea, vomiting, rhinorrhea, and any other symptoms. - Additional Pertinent History Primary Care Physician: [id number] - Allergy/Home Medications Allergies/Adverse Reactions: Allergies Allergy/AdvReac Type Severity Reaction Status Date / Time No Known Allergies Allergy Verified 02/06/18 18:55 PMH/Surg Hx/FS Hx/Imm Hx Endocrine/Hematology History: Reports: Hx Anemia - MILD ANEMIA PER DR ATKINS Denies: Hx Anticoagulant Therapy, Hx Diabetes, Hx Systemic Lupus Erythematosus, Hx Sickle Cell Disease, Hx Thyroid Disease Cardiovascular History: Reports: Other Cardiovascular Problems/Disorders - POWERPORT Denies: Hx Angina, Hx Congestive Heart Failure, Hx Hypertension, Hx Pacemaker /ICD Respiratory History: Reports: Hx Lung Cancer, Hx Pneumonia, Hx Pulmonary Embolism - this visit diagnosis, Hx Sleep Apnea - corrected after bariatric surgery & weight loss - does not use CPAP, Other Respiratory Problems/Disorders - Renal carcinoma met to Lt lung ID'd in December 2015 Denies: Hx Asthma, Hx Chronic Obstructive Pulmonary Disease (COPD) GI History: Reports: Hx Gastroesophageal Reflux Disease, Other GI Disorders - raquel en y. Hemorrhoids. Occasional bowel urgency - per pt report Denies: Hx Ulcer History: Reports: Hx Kidney Stones, Hx Renal Disease, Other Problems/ Disorders - nephrolithiasis, Renal Carcinoma, right nephrectomy Denies: Hx Dialysis Musculoskeletal History: Reports: Other Musculoskeletal History - "2 bones broken in back" Denies: Hx Rheumatoid Arthritis Sensory History: Reports: Hx Contacts or Glasses Denies: Hx Hearing Aid Opthamlomology History: Reports: Hx Contacts or Glasses Neurological History: Reports: Other Neuro Impairments/Disorders - renal carcinoma w/ mets to brain Rt parietal region - rad x3 (Aug 2015) Denies: Hx Seizures Psychiatric History: Reports: Hx Anxiety, Hx Depression, Hx Panic Disorder - Cancer History Cancer Type, Location and Year: RIGHT CELLULAR CARCINOMA. Metastasis to brain, lung, and lymphatic Hx Chemotherapy: Yes - PRESENTLY Hx Radiation Therapy: Yes Hx Palliative Cancer Treatment: No - Surgical History Surgery Procedure, Year, and Place: IVC FILTER ([place] 1.5T) [facility]. Right Nephrectomy 2007,. bariatric raquel-en-y 2011,. bilat cataract,. esophageal biopsy,. kidney stones,. RADIOSURGERY/GAMMA KNIFE TO BRAIN,. POWER PORT PLACEMENT;. ORAL EXTRACTIONS; Hx Anesthesia Reactions: No Infectious Disease History: No Infectious Disease History: Denies: Hx Hepatitis, Hx Human Immunodeficiency Virus (HIV), History Other Infectious Disease, Traveled Outside the [place] in Last 30 Days - Family History Known Family History: Positive: Cardiac Disease, Hypertension, Diabetes - Social History Alcohol Use: Rare Alcohol Amount: 1 beer every few months Hx Substance Use: No Substance Use Type: Reports: None Hx Tobacco Use: No Smoking Status (MU): Never Smoked Tobacco Have You Smoked in the Last Year: No Review of Systems Positive: Fever Negative: Nasal Discharge Negative: Vomiting, Nausea All Other Systems Reviewed And Are Negative: Yes Physical Exam - Summary Physical Exam Summary: VITAL SIGNS: Reviewed. GENERAL: Patient is a well-developed and nourished male who is lying comfortable in the stretcher. Patient is not in any acute respiratory distress. HEAD AND FACE: No signs of trauma. No ecchymosis, hematomas or skull depressions. No sinus tenderness. EYES: PERRLA, EOMI x 2, No injected conjunctiva, no nystagmus. EARS: Hearing grossly intact. Ear canals and tympanic membranes are within normal limits. MOUTH: Oropharynx within normal limits. NECK: Supple, trachea is midline, no adenopathy, no JVD, no carotid bruit, no c- spine tenderness, neck with full ROM. CHEST: Symmetric, no tenderness at palpation LUNGS: Clear to auscultation bilaterally. No wheezing or crackles. CVS: Regular rate and rhythm, S1 and S2 present, no murmurs or gallops appreciated. ABDOMEN: Soft, non-tender. No signs of distention. No rebound no guarding, and no masses palpated. Bowel sounds are normal. EXTREMITIES: FROM in all major joints, no edema, no cyanosis or clubbing. NEURO: Alert and oriented x 3. No acute neurological deficits. Speech is normal and follows commands. SKIN: Dry and warm Triage Information Reviewed: Yes Vital Signs On Initial Exam: Initial Vitals Temp Pulse Resp BP Pulse Ox 98.0 F 110 16 150/97 96 02/06/18 18:52 02/06/18 18:52 02/06/18 18:52 02/06/18 18:52 02/06/18 18:52 Vital Signs Reviewed: Yes Diagnostics - Vital Signs Vital Signs Temp Pulse Resp BP Pulse Ox 02/06/18 18:52 98.0 F 110 16 150/97 96 - Laboratory Result Diagrams: 02/06/18 20:47 02/06/18 20:47 Lab Statement: Any lab studies that have been ordered have been reviewed, and results considered in the medical decision making process. - Radiology CXR Radiology Interpretation Completed By: Radiologist - CXR, per radiologist, reveals No compelling evidence for pneumonia. Chronic atelectasis or scarring at the RIGHT lung base. RIGHT mediastinal lymphadenopathy as on the prior CT. Dr. Herrera has reviewed this radiology report. Re-Evaluation - Re-Evaluation First Eval Re-Evaluation Time: 22:36 Comment: Pt feels better. Reviewed D/C plan. Course/Dx - Course Assessment/Plan: 52 y/o with Hx of metastatic renal CA. Hes on chemo. Pt had low grade fever at home with no associated symptoms. Unremarkable exam. Urine and CXR negative. No leukocytosis. Pt feels better in ED. He does not look toxic. Blood culture done. Pt was D/C home with f/u to Dr. Atkins. No abx needed at this time. - Diagnoses Provider Diagnoses: Fever, Viral syndrome Discharge - Sign-Out/Discharge Documenting (check all that apply): Discharge - home - Discharge Plan Condition: Stable Disposition: HOME Patient Education Materials: Fever in Adults (ED), Viral Syndrome (ED) Referrals: Zack Atkins MD [Medical Doctor] - 2 Days Additional Instructions: RETURN TO THE EMERGENCY DEPARTMENT FOR CHANGING OR WORSENING SYMPTOMS. The documentation as recorded by the George burroughs Nilda accurately reflects the service I personally performed and the decisions made by Sharon gandhi Abdul, MD.
== END 2018-02-06 22:51 | disposition home or self-care (01) ==
LOC: ED 18:43
DX: R50.9 Fever, unspecified (principal); B34.9 Viral infection, unspecified; Z86.79 Personal history of other diseases of the circulatory system
CPT/HCPCS: 36415; 71045; 80053; 81003; 81015; 83605; 85025; 86140; 87040; 87086; 87502; 99282

== ENCOUNTER 2018-11-16 12:19 | Inpatient (IN) | payer BC ==
[2018-11-16] MEDS ORDERED: NS 0.9% 1000 ML* 2,000 ML IV ONE (12:56)
--- NOTE | 2018-11-16 13:01 | ED ---
Neurological HPI - HPI Summary HPI Summary: This patient is a 53 year old M presenting to [facility] with a chief complaint of seizure since [employer]. He feels muscle aches throughout his body and states that they started prior to the seizure. Pt recently recovered from multiple malignant tumors. Pt was witnessed to have convulsions/seizures three times approximately one minute each. He rates the pain from his myalgia 6/10 in severity. - History of Current Complaint Chief Complaint: EDSeizure Stated Complaint: POSS SEIZURES Time Seen by Provider: 11/16/18 12:25 Hx Obtained From: Patient Onset/Duration: Sudden Onset, Started hours ago Onset Severity: Moderate Current Severity: Moderate Pain Intensity: 6 Pain Scale Used: 0-10 Numeric Character: Other: - Myalgia Seizure Character: Generalized Associated Signs and Symptoms: Positive: Seizure - Additional Pertinent History Primary Care Physician: GEOFF - Allergy/Home Medications Allergies/Adverse Reactions: Allergies Allergy/AdvReac Type Severity Reaction Status Date / Time No Known Allergies Allergy Verified 06/24/18 08:23 PMH/Surg Hx/FS Hx/Imm Hx Endocrine/Hematology History: Reports: Hx Anemia - MILD ANEMIA PER DR HERNANDEZ Denies: Hx Anticoagulant Therapy, Hx Diabetes, Hx Systemic Lupus Erythematosus, Hx Sickle Cell Disease, Hx Thyroid Disease Cardiovascular History: Reports: Other Cardiovascular Problems/Disorders - POWERPORT Denies: Hx Angina, Hx Congestive Heart Failure, Hx Hypertension, Hx Pacemaker /ICD Respiratory History: Reports: Hx Lung Cancer, Hx Pneumonia, Hx Pulmonary Embolism - this visit diagnosis, Hx Sleep Apnea - corrected after bariatric surgery & weight loss - does not use CPAP, Other Respiratory Problems/Disorders - Renal carcinoma met to Lt lung ID'd in December 2015 Denies: Hx Asthma, Hx Chronic Obstructive Pulmonary Disease (COPD) GI History: Reports: Hx Gastroesophageal Reflux Disease, Other GI Disorders - raquel en y. Hemorrhoids. 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 Metastasis to brain, lung, and lymphatic Hx Chemotherapy: Yes Hx Radiation Therapy: Yes Hx Palliative Cancer Treatment: No - Surgical History Surgery Procedure, Year, and Place: Rt NEPHRECTOMY. IVC FILTER - [place] - 1.5T ONLY - FOR MRI. RAQUEL - EN - Y - 2011. RASHAUN CATARACTS. ESOPHEGEAL BIOPSY. RADIOSURGERY - GAMMA KNIFE - BRAIN. POWER PORT. ORAL EXTRASTIONS Hx Anesthesia Reactions: No Infectious Disease History: No Infectious Disease History: Denies: Hx Hepatitis, Hx Human Immunodeficiency Virus (HIV), History Other Infectious Disease, Traveled Outside the US in Last 30 Days - Family History Known Family History: Positive: Cardiac Disease, Hypertension, Diabetes - Social History Alcohol Use: Rare Alcohol Amount: 1 beer every few months Hx Substance Use: No Substance Use Type: Reports: None Hx Tobacco Use: No Smoking Status (MU): Never Smoked Tobacco Have You Smoked in the Last Year: No Review of Systems Positive: Myalgia Neurological: Other - Seizure/convulsion All Other Systems Reviewed And Are Negative: Yes Physical Exam - Summary Physical Exam Summary: GENERAL: Patient is a well-developed and nourished M who is lying comfortable in the stretcher. Patient is not in any acute respiratory distress. HEAD AND FACE: Normocephalic EYES: PERRLA, EOMI x 2. EARS: Hearing grossly intact. MOUTH: Oropharynx within normal limits. Dry mucous membranes NECK: Supple, trachea is midline, no adenopathy, no JVD, no carotid bruit. CHEST: Symmetric, no tenderness at palpation LUNGS: Clear to auscultation bilaterally. No wheezing or crackles. CVS: Regular rate and rhythm, S1 and S2 present, no murmurs or gallops appreciated. ABDOMEN: Soft, non-tender. Bowel sounds are normal. No abdominal abnormal pulsations. EXTREMITIES: Full ROM in all major joints, no edema, no cyanosis or clubbing. NEURO: Alert and oriented x 3. No acute neurological deficits. Speech is normal and follows commands. SKIN: Dry and warm Triage Information Reviewed: Yes Vital Signs On Initial Exam: Initial Vitals Temp Pulse Resp BP Pulse Ox 99.9 F 95 18 105/80 90 01/19/19 12:31 11/16/18 12:31 11/16/18 12:31 11/16/18 12:31 11/16/18 12:31 Vital Signs Reviewed: Yes Diagnostics - Vital Signs Vital Signs Temp Pulse Resp BP Pulse Ox 11/16/18 12:31 99.9 F 95 18 105/80 90 - Laboratory Result Diagrams: 11/17/18 05:40 11/17/18 05:40 Lab Statement: Any lab studies that have been ordered have been reviewed, and results considered in the medical decision making process. - Radiology CXR Radiology Interpretation Completed By: Radiologist Summary of Radiographic Findings: Cardiomegaly with pulmonary vascular congestion. ED Provider has reviewed this report. - CT Brain CT CT Interpretation Completed By: Radiologist Summary of CT Findings: 1. Stable right medial temporal lobe lesion with associated vasogenic edema 2. Stable nodule of the right lateral ventricle as described on previous MRI. ED Provider has reviewed this report. - EKG 1310 Cardiac Rate: NL EKG Rhythm: Sinus Rhythm - 82 BPM Summary of EKG Findings: Early R wave progression, Normal axis. Re-Evaluation - Re-Evaluation First Eval Re-Evaluation Time: 02:25 Change: Improved Comment: Discussed imaging results with patient and plan for admission. Course/Dx - Course Course Of Treatment: This patient is a 53 year old M presenting to [facility] with a chief complaint of seizure since [employer]. Chest XR and Brain CT were conducted to rule out cardiopulmonary and neurological disorders. Due to new onset of seizures the patient will be admitted. Dr. Gentile was consulted and he agreed with his treatment plan. Dr. Cm, Hospitalist, accepted the patient for admission at 0230. I discussed results with patient. The patient agrees with this plan. - Diagnoses Provider Diagnoses: Seizures - Physician Notifications Discussed Care Of Patient With: Deandre Gentile - Neurology Time Discussed With Above Provider: 14:13 - Agreed with medication plan. Will see patient tomorrow after he was admitted. Discharge - Sign-Out/Discharge Documenting (check all that apply): Patient Departure - Admission - Discharge Plan Condition: Stable Disposition: ADMITTED TO [facility] - Billing Disposition and Condition Condition: STABLE Disposition: Admitted to [facility] - Attestation Statements Document Initiated by Scribe: Yes Documenting Scribe: Patrice Haines Provider For Whom Scribe is Documenting (Include Credential): Keshia Hale MD Scribe Attestation: I, Patrice Haines, scribed for Keshia Hale MD on 11/17/18 at 1047. Scribe Documentation Reviewed: Yes Provider Attestation: The documentation as recorded by the scribe, Patrice Haines accurately reflects the service I personally performed and the decisions made by me, Horace Hale MD Status of Scribe Document: Viewed
[2018-11-16 13:06] LABS: Urine Appearance Cloudy; Urine Bacteria Absent (Absent); Urine Bilirubin Negative (Negative); Urine Blood 3+ (Negative); Urine Color Yellow; Urine Glucose Negative (Negative); Urine Ketones Trace (Negative); Urine Nitrite Negative (Negative); Urine Protein 1+(30 mg/dL) (Negative); Urine Red Blood Cell 1+(3-5/hpf) (Absent); Urine Specific Gravity 1.014 (1.010-1.030); Urine Urobilinogen Negative (Negative); Urine White Blood Cell 1+(6-10/hpf) (Absent)
[2018-11-16] MEDS ORDERED: Morphine VIAL* 4 MG/ML VIAL (1 ml vial) IV ONE (13:16)
[2018-11-16 13:21] LABS: Hematocrit 41 % (42-52); Hemoglobin 13.2 g/dl (14.0-18.0); Mean Corpuscular HGB Conc 33 g/dl (31-36); Mean Corpuscular Hemoglobin 29 pg (27-31); Mean Corpuscular Volume 89 fL (80-94); Mean Platelet Volume 7.8 fL (7.4-10.4); Platelet Count 236 10^3/ul (150-450); Red Blood Count 4.56 10^6/ul (4.00-5.40); Red Cell Distribution Width 15 % (10.5-15); White Blood Count 9.9 10^3/ul (3.5-10.8)
[2018-11-16 13:39] LABS: Albumin 3.5 g/dL (3.2-5.2); Albumin/Globulin Ratio 1.2 (1-3); BUN/Creatinine Ratio 7.1 (8-20); C Reactive Protein 60.06 mg/L (<8.01); Calcium 8.8 mg/dL (8.6-10.3); EGFR Non-African American 42.7 (>60); Potassium 3.5 mmol/L (3.5-5.0); Total Bilirubin 0.6 mg/dL (0.2-1.0); Total Protein 6.5 g/dL (6.4-8.9)
[2018-11-16 13:46] LABS: Activated Partial Thrombo Time 35.2 seconds (26.0-36.3); INR 1.02 (0.77-1.02)
[2018-11-16] MEDS ORDERED: levETIRAcetam IV* 1,000 MG in NS 0.9% 100 ML* 100 ML IVPB ONE (14:10)
[2018-11-16] MEDS ORDERED: Dexamethasone IV* 4 MG/ML 5 ML VIAL (20 MG) IVPB ONE (14:10)
[2018-11-16 15:00] LABS: ABS Basophils 0 10^3/ul (0-0.2); ABS Eosinophils 0.1 10^3/ul (0-0.6); ABS Lymphocytes 0.4 10^3/ul (1.0-4.8); ABS Monocytes 0.5 10^3/ul (0-0.8); ABS Neutrophils 8.8 10^3/ul (1.5-7.7); ABS Nucleated RBC 0 10^3/ul; Eosinophil % 0.9 %; Lymphocyte % 4.1 %; Nucleated Red Blood Cells % 0.1
[2018-11-16] MEDS ORDERED: Acetaminophen TAB* 325 MG PO PRN (15:29)
[2018-11-16] MEDS ORDERED: ALPRAZolam TAB* 0.5 MG PO PRN (15:35)
[2018-11-16] MEDS ORDERED: Meclizine TAB* 12.5 MG PO PRN (15:35)
[2018-11-16] MEDS ORDERED: Dexamethasone IV* 8 MG in NS 0.9% 50 ML* 50 ML IVPB SCH (16:00)
[2018-11-16] MEDS ORDERED: NS 0.9% 1000 ML* 1,000 ML IV SCH (16:00)
[2018-11-16] MEDS ORDERED: oxyCODONE/Acetamin 5/325 MG* TAB ONE (16:20)
[2018-11-16] MEDS: oxyCODONE/Acetamin 5/325 MG* TAB PO PRN (16:22)
[2018-11-16] MEDS ORDERED: Morphine VIAL* 4 MG/ML VIAL (1 ml vial) IV PRN (17:36)
--- NOTE | 2018-11-16 17:38 | HP ---
CC: Eyad Sinha NP; Dr. Gentile; Dr. Choi; Dr. Atkins * HISTORY AND PHYSICAL: DATE OF ADMISSION: 11/16/18 PRIMARY CARE PROVIDER: Eyad Sinha NP ATTENDING PHYSICIAN WHILE IN THE HOSPITAL: Dr. Michael Cm * (report dictated by Emeterio Meyer NP). CONSULTING NEUROLOGIST: Dr. Gentile. CONSULTING ONCOLOGIST: Dr. Choi. PRIMARY ONCOLOGIST: Dr. Atkins. CHIEF COMPLAINT: Seizure. HISTORY OF PRESENT ILLNESS: Mr. Teresa is a 53-year-old male patient that presents to our ER today. He gives a history that he had a 2-day history of just not feeling well. He has been aching generally all over. He denies having any URI symptoms. No chest pain, no shortness of breath, no cough, no sore throat. Denies having any fevers or chills. No recent change in medications. He carries a history of renal cell carcinoma with mets to lymph node, lungs and to the brain. He has 2 lesions in his brain. He states that he just was not feeling well. The last thing he remembers is he went to bed last night, he remembers his waking him up vaguely at one point, but then remembers coming into the ER. According to the , this morning he had 3 episodes of seizures that lasted 1 to 2 minutes with him clenching his upper extremities, him shaking generally, he bit his tongue where he did have some blood from his mouth, in addition to this he was incontinent of urine. After each of these events, he was very confused, he was belligerent at times. He did hit his head last year he recalls where he had a gash, but to his knowledge he does not think that he ever passed out from head trauma. His noted that when she found him at 5 in the morning his CPAP was not on. It is noted that he does take Wellbutrin. He says that he has not been having any trouble with vomiting or diarrhea. He does not really recall the events. The was concerned, called the on-call oncologist who said come to the ER immediately to be evaluated. Again, he came in. He had no more seizure-like activity here, but there was concern obviously because of 3 seizures [id number], history of the brain mets, we were asked to evaluate for admission. PAST MEDICAL HISTORY: Significant for: 1. Renal cell carcinoma with metastases to the lymph nodes, in addition to this pulmonary and brain. 2. He has had a history of DVT and PE, status post IVC filter. 3. He has had gastric ulcers with GI bleeding in the past. 4. Anxiety. 5. Depression. 6. History of nephrolithiasis. 7. GERD. PAST SURGICAL HISTORY: 1. He has had right nephrectomy. 2. Gastric bypass. 3. Cataracts. 4. He has had gamma knife previously. MEDICATIONS: Home meds according to his recall include: 1. Opdivo, he takes 1 infusion monthly, he does not know the dose. 2. Synthroid 25 mcg daily. 3. Wellbutrin 400 mg daily. 4. Tylenol 500 mg every 6 hours as needed. 5. Xanax 0.5 mg p.o. t.i.d. as needed. 6. Multivitamin 1 tablet daily. 7. Meclizine 1 tablet every 6 hours as needed. 8. Lexapro 1 tablet daily. 9. Decadron 1 mg p.o. daily. 10. Prilosec 20 mg p.o. b.i.d. 11. Klonopin 2 mg p.o. b.i.d. ALLERGIES TO MEDICATIONS: Include no known drug allergies. FAMILY HISTORY: Mother has a history of hypertension and diabetes, she is still alive; father had a history of DC, he is . SOCIAL HISTORY: He rarely drinks alcohol. He does not smoke. He denies any illicit drug use. Surrogate decision maker is his , Isabel. REVIEW OF SYSTEMS: He has a low-grade documented fever of 100.2 this morning. He denies having any rhinorrhea. No sore throat. No thyroid enlargement. Denied having any chest pain. There is no orthopnea. There is no nocturnal dyspnea. He denies having any abdominal pain. There was no nausea. There was no vomiting. There was no dysuria, no frequency. There was again seizure. Review of 14 systems was completed, all others negative. PHYSICAL EXAMINATION GENERAL: At this time, Mr. Teresa is a 53-year-old male patient. He is sitting in the ED stretcher. He does not appear to be in any acute distress. He is morbidly obese. He appears to be well nourished and well developed. VITAL SIGNS: Blood pressure 122/78; pulse of 85; respirations are 18, although they are documented at 28 in the computer, when I counted them manually, he was breathing between 18 and 22 breaths per minute; O2 saturations were 95%; temperature was 99.9. HEENT: Head: Atraumatic. Eyes: EOMs are intact. He did have nystagmus noted going to the left and to the right that was horizontal. Pupils are reactive to light. Sclerae anicteric and not pale. Throat: Oral mucosa appears to be dry. No oropharyngeal erythema. NECK: Supple. LUNGS: Clear to auscultation bilaterally. There were no wheezes, rales, or rhonchi. HEART: Sounds S1, S2. He had a regular rate and rhythm. No murmurs, rubs, or gallops. ABDOMEN: Soft. It was flat, nontender. Bowel sounds were present. EXTREMITIES: Pulses were 2+ throughout. He is able to move upper extremities with 5/5 strength and lower extremities with 5/5 strength. NEUROLOGIC: He is awake. He is alert. He is oriented x3. His tongue was midline. He did have an area again that appeared to be cut from biting. Pupils were equal and reactive. He did have nystagmus horizontally to the left and to the right. Visual mohr were intact. He knows that he is in the hospital. He does not know what day it is. He knows it is October. He knows the president. His speech was clear. There was no dysarthria noted. His tongue was midline. His palate elevated symmetrically. He had 5/5 strength to the trapezius. He had no facial drooping. Hearing was grossly intact. Motor damon, he has again had normal bulk and tone, 5/5 strength. Sensation was grossly intact in the upper and lower extremities. He had 2+ reflexes bilaterally to the patella. [id number] was intact bilaterally. Heel-to- waterman intact bilaterally. Gait was not tested. SKIN: Intact. DIAGNOSTIC STUDIES/LAB DATA: Labs revealed a WBC of 9.9, RBC of 4.56, hemoglobin of 13.2, hematocrit of 41, platelet count of 236. The INR was 1.02, PTT was 35.2. The sodium was 136; potassium was 3.5; chloride was 109; bicarb 20 ; BUN was 12; creatinine 1.69, his baseline creatinine is 1.4; glucose was 116; lactic 1.2; calcium 8.8. Total bili 0.6, AST 45, ALT 19, alk phos 76. Troponin 0.03. CRP of 60. BNP of 15. Albumin of 3.5. Urine showed 1+ protein , trace ketones, 3+ blood, 1+ wbc's, 1+ rbc's, absent bacteria. Serology was negative for flu. He had a brain CT obtained today, impression: Stable right medial temporal lobe lesion with associated vasogenic edema, stable nodule of the right lateral ventricle as described on previous MRI. Chest x-ray showed cardiomegaly with pulmonary vascular congestion. EKG today showed a normal sinus rhythm, rate of 82. He had no ST elevation or T - wave inversions noted. Reviewed with the previous EKG, this EKG today appears to be improved as the rate is slower. Old medical records were reviewed. ASSESSMENT AND PLAN: Mr. Teresa is a complex 53-year-old male patient coming into the ED today with complaints of a seizure. He had 3 seizures this morning. He will be admitted under inpatient status for: 1. Seizure. Again, certainly he is at risk for seizures given the metastases to his brain. He also did not have his CPAP on last night and he is also on Wellbutrin and he may be having an underlying viral illness, certainly all of which lowers his seizure threshold. Nonetheless, I think he deserves Decadron 8 mg q.8 hours. Oncology will be evaluating him to weigh in on this in terms of tapering the steroids and possible further treatment such as gamma knife or radiation. For the time being, acutely, he needs to be put on Keppra. I touched base with Dr. Gentile. He recommended 500 mg every 8 hours. We are holding off on EEG and holding off on repeating the MRI as he just had this done. We will await official neurologic consult. We will continue with his BiPAP. I am holding his Wellbutrin and to see if there is any underlying infection that can be treated, but I do not see an obvious source currently and we will continue to follow him closely. 2. Again, renal cell carcinoma. I would again defer further management to Oncology. We are getting in touch with them. He will be placed on again the steroids. 3. History of deep venous thrombosis and pulmonary embolism. He has an IVC filter. We will place him on prophylactic dose of heparin subcu given he is high risk. 4. History of gastric ulcer and gastroesophageal reflux disease. Continue meds as prescribed. 5. Anxiety and depression. Continue meds as prescribed with exception of Wellbutrin, which is known to lower the seizure threshold. 6. History of nephrolithiasis. Follow up with PCP. 7. DVT prophylaxis: Again, high risk. He will be placed on heparin subcu. 8. Code status: He is a full code. 9. Obstructive sleep apnea. I have ordered CPAP here. We will try to find his old records, as he does not know the number. According to old sleep study notes, it was recommended to start a CPAP at 13. TIME SPENT: Time spent on the admission was 60 minutes, greater than half of the time was spent [id number] with the patient obtaining my history and physical, other half of the time was spent going over the plan of care with the patient and implementing plan of care. I did discuss the plan of care with my attending, Dr. Cm, and he is in agreement. EMETERIO MEYER NP [id number]/[facility] #: [id number] SHALOM
[2018-11-16] MEDS: levETIRAcetam 500 MG IVPREMIX* 500 MG/100 ML BAG IVPB SCH (18:01)
[2018-11-16] MEDS: Heparin VIAL(*) 5000 UNITS/ML VIAL (FIVE THOUSAND) SUBCUT SCH (21:17)
[2018-11-16] MEDS: Pantoprazole TAB * 40 MG TAB PO SCH (21:17)
[2018-11-16] MEDS: clonazePAM TAB(*) 1 MG PO SCH (21:17)
[2018-11-16] MEDS: Dexamethasone IV* 4 MG/ML 1 ML (4 MG) IV SLOW PU SCH (22:57)
[2018-11-16] MEDS: levETIRAcetam 500 MG IVPREMIX* 500 MG/100 ML BAG IV SCH (23:03)
[2018-11-17] MEDS: levETIRAcetam 500 MG IVPREMIX* 500 MG/100 ML BAG IV SCH ×5 (00:30→23:03)
[2018-11-17] MEDS: Levothyroxine TAB* 25 MCG TAB PO SCH (04:51)
[2018-11-17] MEDS: Heparin VIAL(*) 5000 UNITS/ML VIAL (FIVE THOUSAND) SUBCUT SCH ×4 (04:51→20:39)
[2018-11-17 05:53] LABS: ABS Basophils 0 10^3/ul (0-0.2); ABS Eosinophils 0 10^3/ul (0-0.6); ABS Lymphocytes 0.4 10^3/ul (1.0-4.8); ABS Monocytes 0.1 10^3/ul (0-0.8); ABS Nucleated RBC 0 10^3/ul; Eosinophil % 0.2 %; Hematocrit 38 % (42-52); Hemoglobin 12.2 g/dl (14.0-18.0); Lymphocyte % 3.4 %; Mean Corpuscular HGB Conc 32 g/dl (31-36); Mean Corpuscular Hemoglobin 29 pg (27-31); Mean Corpuscular Volume 89 fL (80-94); Mean Platelet Volume 7.9 fL (7.4-10.4); Nucleated Red Blood Cells % 0; Platelet Count 214 10^3/ul (150-450); Red Blood Count 4.23 10^6/ul (4.00-5.40); Red Cell Distribution Width 15 % (10.5-15); White Blood Count 10.6 10^3/ul (3.5-10.8)
[2018-11-17 05:59] LABS: INR 1.04 (0.77-1.02)
[2018-11-17 06:10] LABS: BUN/Creatinine Ratio 10.9 (8-20); Calcium 8.7 mg/dL (8.6-10.3); EGFR Non-African American 54.4 (>60); Potassium 4.1 mmol/L (3.5-5.0)
[2018-11-17] MEDS: Dexamethasone IV* 4 MG/ML 1 ML (4 MG) IV SLOW PU SCH (07:30)
[2018-11-17] MEDS: Citalopram TAB* 40 MG PO SCH (08:04)
[2018-11-17] MEDS: oxyCODONE/Acetamin 5/325 MG* TAB PO PRN ×2 (08:04→14:38)
[2018-11-17] MEDS: clonazePAM TAB(*) 1 MG PO SCH ×2 (08:04→20:38)
[2018-11-17] MEDS: Pantoprazole TAB * 40 MG TAB PO SCH ×2 (08:04→20:39)
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
--- NOTE | 2018-11-17 19:03 | CONS ---
CC: Dr. Atkins * NEUROLOGY CONSULTATION: DATE OF CONSULT: 11/17/18 LOCATION: He is an inpatient at room 446. REFERRING PROVIDER: Vita Marie NP. CHIEF COMPLAINT: Seizures. HISTORY OF PRESENT ILLNESS: David Teresa is a 53-year-old right-handed man with a history of metastatic renal cell carcinoma who was in bed yesterday morning at about 5:30 when his was woken by him having a generalized convulsion. She has had seizures herself and recognize it as an epileptic event. It resolved and she tried to wake him up to give him his clonazepam, but he was unarousable and fell back to sleep. He had another one within a couple of hours later while still asleep. She again attempted to wake him after it stopped and she noted that he had some blood coming from his mouth. She could not wake him to give him his nighttime clonazepam or Wellbutrin which she believes he forgot. He then had another one and at that point, she decided to call the local fire department to see if they could come and help put him in her car, so she could bring him to the emergency room. They have "poor insurance coverage" for ambulance coverage and so she was trying to avoid having an ambulance ride. However, they needed a special chair to get him out of the house and they ended up calling ambulance anyway and the ambulance told them that he had to come in via ambulance and that they would not settle for any other mode of transportation. Hence, he was brought into the emergency room by ambulance. He recalls being brought out of his house by the family assistant into the ambulance at about 9:30. However, his said that it was about 45 minutes after he recovered from his last and third seizure. She was able to get 2 mg of clonazepam into him as well as his Wellbutrin. He has never had seizures before. He has a history of brain metastasis to the right temporal lobe back in about 2016 for which he received gamma knife therapy. He has metastasis still in the lung and perhaps elsewhere and is currently on chemotherapy for that. He has not had any seizures before. He has generally felt his usual state of health in the last week or so. There is some question of him complaining of not feeling well. He denies any headaches. There has been no recent change in vision. He says that since the discovery of the metastasis and treatment, he has had very poor memory. He still drives. He was started on Keppra in the emergency room, currently 500 mg IV q.8 hours and also dexamethasone 10 mg followed by 8 mg q.8 hours. He reports that he has had "road rage" on steroids in the past. His CT of the brain upon admission to the emergency room yesterday was interpreted as showing the right temporal lobe abnormalities with associated edema. He just recently had an MRI scan done in September, which showed a stable post gamma knife therapy gliosis. PAST MEDICAL HISTORY: Otherwise notable for anxiety and depression, severe pneumonia and deep vein thrombosis and pulmonary embolus in the past. He was anticoagulated and developed severe GI bleeding. He has an inferior vena cava filter in. He has a history of nephrolithiasis as well. PAST SURGICAL HISTORY: Notable for gastric bypass, right nephrectomy, gamma knife therapy, cataract extractions. MEDICATIONS AT HOME: Consist of: 1. Opdivo infusion monthly. 2. Synthroid 25 mcg p.o. daily. 3. Wellbutrin-XL 450 mg p.o. daily. 4. Alprazolam 0.5 mg p.o. t.i.d. p.r.n. 5. Clonazepam 2 mg p.o. usually q.a.m., but prescribed b.i.d. 6. Prilosec 20 mg p.o. b.i.d. 7. Dexamethasone 1 mg p.o. daily. ALLERGIES: He reportedly has no drug allergies. SOCIAL HISTORY: He lives at home with his and children. He stays at his mother's place at times, I am not sure if they all live together or not. He is a nonsmoker. REVIEW OF SYSTEMS: Negative for headaches, change in vision. No recent change in weight. No recent fevers or chills. He gets anxious pretty easily. PHYSICAL EXAM: He is morbidly obese. Temperature 97.2, blood pressure 104/52, heart rate in the 60s and regular. Respiratory rate is 23 and oxygen saturation is 93% on room air. Neck is supple. Lungs are clear to auscultation bilaterally. Heart tones are distant, but I do not hear any murmurs. There are no cervical bruits. He has a small bite dallin on the tip of his tongue. No other oral trauma. Neurologic Exam: Pupils react equally from 3 down to 2 mm. Funduscopic exam revealed sharp discs bilaterally. Visual mohr are suspicious for a left superior quadrant anopsia. Facial musculature is symmetric. Facial sensation to light touch is symmetric. Speech is clear. Tongue protrudes in the midline and palate rises symmetrically. Hearing is intact. Motor exam reveals normal tone and strength with the bilateral mild hip flexor weakness in the full range. There is no distal weakness. Sensory exam notable for intact light touch in all limbs. He has a high-frequency suspension tremor in both hands. There is no myoclonus or asterixis. Finger taps are normal in both hands. Reflexes are quite brisk and symmetric proximally and distally in upper and lower extremities. Plantar responses are flexor on the right and equivocal on the left. He is alert and oriented, but does not recall about 3 hours of the day of admission. He says his memory is poor and his does have to correct him occasionally. Language is fluent. I did not attempt to ambulate him. DIAGNOSTIC STUDIES/LAB DATA: Laboratory data includes a CT scan as described above. CBC on admission notable for a hemoglobin of 13.2, otherwise unremarkable. Coags on admission notable for INR of 1.02, PTT 35.2. Chemistries notable for an elevated CK at 7009 yesterday, 5946 this morning. Glucose was a little elevated when he came in at 116 and is 179 this morning. Creatinine was elevated at 1.69 when he came in, down to 1.37 this morning. Lactic acid was 1.2 on admission. CRP quite elevated at 60.06 yesterday. IMPRESSION AND PLAN: Impression is that of new-onset seizures in a patient with a prior renal carcinoma metastasis to the right hemisphere. He seems to be stable at this point. Interpretation from the radiologist was that there is some edema associated with the prior tumor bed. I am not so sure it is edema and I do not think he necessarily needs an increase in his dexamethasone. I have explained the diagnosis to David and his . I recommended Keppra and he says he forgets his second doses of medications often, so we will go to extended release. Recommend 1500 mg per day. Recommend resuming his 1 mg of dexamethasone at home. I advised that he cannot drive by [place] State law and has to notify the Department of [employer]. I told him it is a minimum of 6 months from his last seizures. I explained side effects of Keppra including sedation and mood problems including irritability. I told him if it gives him problems, we will switch to something else. I plan to see him in followup in my office in about 3 to 4 weeks. They know to call sooner if they are having problems related to the medication or for more seizures. [id number]/[facility] #: [id number] MTDD
[2018-11-18] MEDS: levETIRAcetam 500 MG IVPREMIX* 500 MG/100 ML BAG IV SCH ×2 (00:10→07:38)
[2018-11-18] MEDS: Levothyroxine TAB* 25 MCG TAB PO SCH (05:24)
[2018-11-18] MEDS: Heparin VIAL(*) 5000 UNITS/ML VIAL (FIVE THOUSAND) SUBCUT SCH (05:24)
[2018-11-18] MEDS: Citalopram TAB* 40 MG PO SCH (08:40)
[2018-11-18] MEDS: clonazePAM TAB(*) 1 MG PO SCH (08:40)
[2018-11-18] MEDS: Pantoprazole TAB * 40 MG TAB PO SCH (08:40)
[2018-11-18] MEDS ORDERED: BuPROPion XL* 150 MG TAB.XL PO SCH ×2 (09:00)
[2018-11-18] MEDS ORDERED: Dexamethasone TAB* 1 MG PO SCH (09:00)
[2018-11-18] MEDS ORDERED: levETIRAcetam LIQ* 500 MG/5 ML UDC PO ONE (09:00)
--- NOTE | 2018-11-18 09:51 | DS ---
- Discharge Summary Admission Date: 11/16/18 Discharge Date: 11/18/18 Discharge Diagnosis: 1. Seizure: now on keppra, will f/u with neurology as an outpatient, MRI of head w/wo contrast as outpatient this week to evaluate swelling 2. Metastatic Renal Cell Carcinoma: on Nivolumab with plan to resume next week, f/u with oncology 3. Anxiety/depression: stable, cont. home meds Discharge Medications: Medication Instructions Recorded Confirmed Type Dexamethasone TAB* [Decadron TAB*] 1 mg PO QAM 11/09/16 11/16/18 History clonazePAM TAB(*) [Klonopin TAB(*)] 2 mg PO BID MDD 3 mg 03/01/17 11/16/18 History ALPRAZolam [Alprazolam Odt] 0.5 mg PO TID PRN MDD 1.5mg 03/15/17 11/16/18 History Escitalopram Oxalate [Lexapro 20 1 tab PO DAILY 03/15/17 11/16/18 History mg] Meclizine HCl 1 tab PO QID PRN 03/15/17 11/16/18 History Multiple Vitamins W/ Minerals 1 tab PO DAILY 03/15/17 11/16/18 History [Multivitamin Adults] Omeprazole CAP (NF) [Prilosec CAP* 20 mg PO BID #60 cap 03/17/17 11/16/18 Rx 20 MG] Acetaminophen TAB* [Tylenol TAB*] 500 mg PO Q6H PRN 11/16/18 11/16/18 History Levothyroxine Sodium 25 mcg PO DAILY 11/16/18 11/16/18 History Nivolumab* [Opdivo] 0 mg INFUSION MONTHLY 11/16/18 11/16/18 History BuPROPion XL* [Bupropion XL*] 300 mg PO DAILY #30 tab.xl 11/17/18 Rx levETIRAcetam [Levetiracetam ER] 1,500 mg PO DAILY #60 tab.er.24h 11/17/18 Rx oxyCODONE/Acetamin 5/325 MG* 1 tab PO Q6H PRN #20 tab MDD 4 11/17/18 Rx [Percocet 5/325 TAB*] Bupropion XL* [Wellbutrin XL *] 300 mg PO DAILY tab 11/18/18 Rx levETIRAcetam [Levetiracetam ER] 1,500 mg PO DAILY #60 tab 11/18/18 Rx Hospital course: Please see admission note for full H&P, however briefly, Mr. Teresa is well known to our service due to his unfortunate diagnosis of metastatic renal cell carcinoma, most recently stable on Nivolumab. Mr. Teresa's contacted the on-call provider 11/16 following several seizures at home at which time she was instructed to contact 911 for transport to the ER. In the ER he had a negative chest x-ray and CT of the head without contrast revealed stable edema. He was admitted with high dose steroids and initiation of keppra per recommendation from neurology. Dr. Gentile saw the patient in consultation 11/17 with plan for daily dosing of keppra due to patient's forgetfulness. Mr. Teresa has had no further seizures. He noted significant myalgias on admission and had a markedly elevated CK which has since decreased. He feels his pain is controlled. At this time he is stable for d/c and will f/u with our office in 1 weeks times with MRI of the head. Plan of care reviewed at length with all questions answered. >40 min spent with >50% face to face counseling.
[2018-11-18 10:13] VITALS: BP 118/73
== END 2018-11-18 12:00 | disposition home or self-care (01) | DRG 53 ==
LOC: ED 12:19 → MEDTELE 15:17
PROVIDERS: ADMIT Nurse Practitioner Family; ATTEND Internal Medicine Hematology & Oncology
DX: G40.909 Epilepsy, unspecified, not intractable, without status epilepticus (principal); G93.6 Cerebral edema; C77.9 Secondary and unspecified malignant neoplasm of lymph node, unspecified; C78.00 Secondary malignant neoplasm of unspecified lung; C79.31 Secondary malignant neoplasm of brain; C64.9 Malignant neoplasm of unspecified kidney, except renal pelvis; E66.01 Morbid (severe) obesity due to excess calories; F32.9 Major depressive disorder, single episode, unspecified; F41.9 Anxiety disorder, unspecified; K21.9 Gastro-esophageal reflux disease without esophagitis; E03.9 Hypothyroidism, unspecified; G47.33 Obstructive sleep apnea (adult) (pediatric); K25.9 Gastric ulcer, unspecified as acute or chronic, without hemorrhage or perforation; Z86.718 Personal history of other venous thrombosis and embolism; Z86.711 Personal history of pulmonary embolism; Z68.39 Body mass index [BMI] 39.0-39.9, adult; Z98.84 Bariatric surgery status; Z79.1 Long term (current) use of non-steroidal anti-inflammatories (NSAID); Z79.899 Other long term (current) drug therapy; Z82.49 Family history of ischemic heart disease and other diseases of the circulatory system; Z83.3 Family history of diabetes mellitus
CPT/HCPCS: 36415; 70450; 71045; 80048; 80053; 81003; 81015; 82550; 83605; 83880; 84484; 85025; 85610; 85730; 86140; 87040; 87086; 93005; 94660; 99239; 99284; A9270-GY; J1100; J1644; J2270

== ENCOUNTER 2022-12-24 10:30 | Observation (INO) ==
[2022-12-24 10:56] LABS: ABS Lymphocytes 0.4 10^3/ul (1.0-4.8); ABS Monocytes 0.2 10^3/ul (0-0.8); ABS Neutrophils 3.1 10^3/ul (1.5-7.7); Eosinophil % 1.1 %; Hematocrit 37 % (42-52); Hemoglobin 11.4 g/dL (14.0-18.0); Lymphocyte % 9.9 %; Mean Corpuscular HGB Conc 31 g/dL (31-36); Mean Corpuscular Hemoglobin 31 pg (27-31); Mean Corpuscular Volume 101 fL (80-94); Mean Platelet Volume 8.1 fL (7.4-10.4); Nucleated Red Blood Cells % 0.1; Platelet Count 137 10^3/uL (150-450); Red Blood Count 3.67 10^6 /uL (4.18-5.48); Red Cell Distribution Width 17 % (10-15); White Blood Count 3.7 10^3/uL (3.5-10.8)
[2022-12-24 11:12] LABS: INR 1.02 (0.88-1.18)
[2022-12-24 11:19] LABS: High Sens Troponin Baseline 4 pg/mL (<20)
[2022-12-24 11:45] LABS: ALT 15 U/L (7-52); AST 13 U/L (13-39); Albumin 3.6 g/dL (3.2-5.2); Albumin/Globulin Ratio 1.4 (1-3); Alkaline Phosphatase 65 U/L (35-149); Blood Urea Nitrogen 14 mg/dL (6-24); Calcium 7.6 mg/dL (8.6-10.3); Creatinine, Serum 1.57 mg/dL (0.67-1.17); Globulin 2.5 g/dL (2-4); Glucose 94 mg/dL (70-100); Potassium 4.1 mmol/L (3.5-5.0); Sodium 134 mmol/L (135-145); Total Protein 6.1 g/dL (6.4-8.9); eGFR CKD-EPI 51.1 (>60)
[2022-12-24 11:52] LABS: Anion Gap 6 mmol/L (2-11); CO2 Carbon Dioxide 13 mmol/L (22-32); Chloride 115 mmol/L (101-111)
[2022-12-24] MEDS ORDERED: NS 0.9% 1000 ml BAG 1,000 ML IV ONE ×2 (12:20→16:04)
[2022-12-24 12:34] LABS: High Sensitivity Troponin 1 Hr 3 pg/mL (<20)
[2022-12-24 12:36] LABS: C Reactive Protein 34.72 mg/L (<8.01)
[2022-12-24] MEDS ORDERED: Iodixanol (CONTRAST) 320 MG/ML 100 ML SDV IV ONE (12:38)
[2022-12-24] MEDS ORDERED: Piperacillin/Tazobac ADVAN 3.375 GM in NS 0.9% 100 ml BAG 100 ML IV ONE (16:04)
[2022-12-24 16:37] LABS: Urine Appearance Clear; Urine Bilirubin Negative (Negative); Urine Blood Negative (Negative); Urine Color Yellow; Urine Glucose Negative (Negative); Urine Ketones Trace (Negative); Urine Nitrite Negative (Negative); Urine Protein 1+(30 mg/dL) (Negative); Urine Specific Gravity 1.035 (1.002-1.030); Urine Urobilinogen Negative (Negative)
[2022-12-24 16:46] LABS: Urine Bacteria Absent (Absent); Urine Red Blood Cell Absent (Absent); Urine Squamous Epithelial Cell Present (Absent); Urine White Blood Cell Absent (Absent)
[2022-12-24] MEDS ORDERED: NS 0.9% 1000 ml BAG 1,000 ML IV SCH (17:30)
[2022-12-24] MEDS ORDERED: ALPRAZOLAM 0.5 MG PO PRN (17:53)
[2022-12-24 21:16] LABS: % Iron Saturation 7 % (15-55); Iron < 20 ug/dL (50-212); Total Iron Binding Capacity 279 mcg/dL (250-450); Transferrin 199 mg/dL (203-362); Unsaturated Iron Binding 259 ug/dL
[2022-12-25 06:10] LABS: ABS Eosinophils 0.1 10^3/ul (0-0.6); ABS Lymphocytes 0.7 10^3/ul (1.0-4.8); ABS Monocytes 0.2 10^3/ul (0-0.8); ABS Neutrophils 1.2 10^3/ul (1.5-7.7); Eosinophil % 3.3 %; Hematocrit 31 % (42-52); Hemoglobin 9.7 g/dL (14.0-18.0); Mean Corpuscular HGB Conc 32 g/dL (31-36); Mean Corpuscular Hemoglobin 32 pg (27-31); Mean Corpuscular Volume 100 fL (80-94); Mean Platelet Volume 8.9 fL (7.4-10.4); Platelet Count 105 10^3/uL (150-450); Red Blood Count 3.06 10^6 /uL (4.18-5.48); Red Cell Distribution Width 17 % (10-15); White Blood Count 2.2 10^3/uL (3.5-10.8)
[2022-12-25 06:15] LABS: Calcium 7.2 mg/dL (8.6-10.3); Creatinine, Serum 1.39 mg/dL (0.67-1.17); Potassium 3.4 mmol/L (3.5-5.0); eGFR CKD-EPI 59.1 (>60)
[2022-12-25] MEDS ORDERED: Lactated Ringers 1000 ml BAG 1,000 ML IV ONE (09:22)
[2022-12-25] MEDS ORDERED: KCL 20 MEQ/100 ML IVPREMIX 20 MEQ/100 ML BAG ONE (10:33)
[2022-12-25 10:34] LABS: Folate 6.51 ng/mL (5.90-24.80)
[2022-12-25] MEDS: KCL 20 MEQ/100 ML IVPREMIX 20 MEQ/100 ML BAG IV SCH ×2 (10:40→14:04)
[2022-12-25 15:21] LABS: Venous Bicarbonate HCO3 10.6 mmol/L (24-28)
[2022-12-25] MEDS: Sodium Citrate/Citric Acid LIQ 15 ML UDC PO SCH ×2 (15:44→21:02)
[2022-12-26 06:17] LABS: Hematocrit 30 % (42-52); Hemoglobin 9.6 g/dL (14.0-18.0); Mean Corpuscular HGB Conc 32 g/dL (31-36); Mean Corpuscular Hemoglobin 32 pg (27-31); Mean Corpuscular Volume 100 fL (80-94); Mean Platelet Volume 8.4 fL (7.4-10.4); Platelet Count 105 10^3/uL (150-450); Red Cell Distribution Width 17 % (10-15); White Blood Count 2.9 10^3/uL (3.5-10.8)
[2022-12-26 06:48] LABS: Anisocytosis 1+; Macrocytosis 1+
[2022-12-26 06:49] LABS: ABS Eosinophils 0.3 10^3/ul (0-0.6); ABS Monocytes 0.3 10^3/ul (0-0.8); ABS Neutrophils 1.3 10^3/ul (1.5-7.7); Burr Cells 2+; Eosinophil % 9.5 %; Lymphocyte % 34.8 %; Nucleated Red Blood Cells % 0.1
[2022-12-26 06:50] LABS: Calcium 7.3 mg/dL (8.6-10.3); Creatinine, Serum 1.18 mg/dL (0.67-1.17); Magnesium 2.1 mg/dL (1.9-2.7); Potassium 3.6 mmol/L (3.5-5.0)
[2022-12-26 09:48] VITALS: BP 113/63
[2022-12-26 11:05] LABS: Urine Potassium Concentration 7.3 mmol/L
[2022-12-26 12:02] LABS: PCO2 Arterial 20 mmHg (35-45); PO2 Arterial 120 mmHg (80-100)
[2022-12-26] MEDS: Sodium Bicarb 650 mg (ANTACID) TAB PO SCH ×2 (13:39→17:38)
== END 2022-12-26 18:05 | disposition home or self-care (01) ==
LOC: EDHOLD 10:30 → ED 10:30 → SUATTDRO 17:24 → MED 21:29
PROVIDERS: ADMIT Student in an Organized Health Care Education/Training Program; ATTEND Internal Medicine

== ENCOUNTER 2023-11-04 19:56 | Inpatient (IN) ==
[2023-11-04] MEDS ORDERED: Lorazepam PYXIS KEY PRN ×2 (20:14→21:41)
[2023-11-04] MEDS ORDERED: LORazepam 2 mg VIAL 1 ml IV PUSH ONE ×2 (20:14→21:41)
[2023-11-04] MEDS ORDERED: Midazolam 5 mg/ml concentrated 5 mg/ml 1 ml VIAL INJ ONE (20:23)
[2023-11-04 20:44] LABS: ABS Basophils 0.1 10^3/uL (0.0-0.1); ABS Eosinophils 0.1 10^3/uL (0.0-0.5); ABS Lymphocytes 0.5 10^3/uL (1.0-4.8); ABS Monocytes 0.3 10^3/uL (0.0-1.1); ABS Neutrophils 5.5 10^3/uL (1.5-7.6); Eosinophil % 1.1 %; Hematocrit 31.8 % (38-53); Hemoglobin 10.2 g/dL (13.2-16.3); Lymphocyte % 8.1 %; Mean Corpuscular Hemoglobin 30.7 pg (27-33); Mean Corpuscular Hgb Conc 32.2 g/dL (31-36); Mean Corpuscular Volume 95.2 fL (80-97); Mean Platelet Volume 7.9 fL (7.5-11.2); Nucleated Red Blood Cells % 0.1 %/100WBC (0.0-0.8); Platelet Count 246 10^3/uL (150-450); Red Blood Count 3.34 10^6/uL (4.06-5.63); Red Cell Distribution Width 19.2 % (12-17); White Blood Count 6.4 10^3/uL (3.6-10.2)
[2023-11-04 21:01] LABS: Albumin 3.5 g/dL (3.2-5.2); Albumin/Globulin Ratio 1.3 (1-3); Calcium 7.7 mg/dL (8.6-10.3); Creatinine, Serum 1.25 mg/dL (0.67-1.17); Globulin 2.8 g/dL (2-4); Potassium 3.5 mmol/L (3.5-5.0); Total Bilirubin 0.5 mg/dL (0.2-1.0); Total Protein 6.3 g/dL (6.4-8.9); eGFR CKD-EPI 66.7 (>60)
[2023-11-04] MEDS ORDERED: LORazepam 2 mg VIAL 1 ml ONE (21:39)
[2023-11-04] MEDS ORDERED: levETIRAcetam 1000MG IVPREMIX 1,000 MG/100 ML BAG IVPB ONE (21:41)
[2023-11-04] MEDS ORDERED: Dexamethasone IV 4 MG/ML VIAL 1 ml VIAL IV SLOW PU ONE (22:47)
[2023-11-04] MEDS ORDERED: levETIRAcetam IV 1,500 MG in NS 0.9% 100 ml BAG 100 ML IVPB ONE (22:49)
[2023-11-04] MEDS ORDERED: Midazolam 5 mg/5 ml VIAL 1 mg/ml 5 ml VIAL (5 mg) IV SLOW PU ONE (22:51)
[2023-11-05] MEDS ORDERED: Lactated Ringers 1000 ml BAG 1,000 ML IV ONE (01:22)
[2023-11-05] MEDS: KCL 20 MEQ/100 ML IVPREMIX 20 MEQ/100 ML BAG IV SCH ×2 (08:22→11:04)
[2023-11-05 08:29] LABS: ABS Lymphocytes 0.5 10^3/uL (1.0-4.8); ABS Neutrophils 3.1 10^3/uL (1.5-7.6); ABS Nucleated RBC 0.01 10^3/ul; Eosinophil % 0.1 %; Hematocrit 28.1 % (38-53); Hemoglobin 9.3 g/dL (13.2-16.3); Lymphocyte % 12.8 %; Mean Corpuscular Hemoglobin 31.1 pg (27-33); Mean Corpuscular Hgb Conc 33.2 g/dL (31-36); Mean Corpuscular Volume 93.9 fL (80-97); Mean Platelet Volume 7.9 fL (7.5-11.2); Nucleated Red Blood Cells % 0.2 %/100WBC (0.0-0.8); Platelet Count 209 10^3/uL (150-450); Red Blood Count 2.99 10^6/uL (4.06-5.63); Red Cell Distribution Width 18.6 % (12-17); White Blood Count 3.6 10^3/uL (3.6-10.2)
[2023-11-05 09:01] LABS: Calcium 7.7 mg/dL (8.6-10.3); Creatinine, Serum 1.04 mg/dL (0.67-1.17); Magnesium 2.2 mg/dL (1.9-2.7); Potassium 4.3 mmol/L (3.5-5.0); eGFR CKD-EPI 83.2 (>60)
[2023-11-05] MEDS ORDERED: levETIRAcetam 500 MG IVPREMIX 500 MG/100 ML BAG IV SCH ×2 (10:00)
[2023-11-05] MEDS ORDERED: D5W 1000 ml BAG 1,000 ML IV SCH (11:00)
[2023-11-05] MEDS: D5W 1000 ml BAG 1,000 ML IV SCH ×2 (11:34→21:40)
[2023-11-05] MEDS ORDERED: Valproic Acid IV 1,000 MG in NS 0.9% 100 ml BAG 100 ML IVPB ONE (11:54)
[2023-11-05] MEDS: Enoxaparin 40 MG/0.4 ML SYR SUBCUT SCH (12:42)
[2023-11-06 06:54] LABS: ABS Eosinophils 0.1 10^3/uL (0.0-0.5); ABS Lymphocytes 1.5 10^3/uL (1.0-4.8); ABS Monocytes 0.2 10^3/uL (0.0-1.1); ABS Neutrophils 3.1 10^3/uL (1.5-7.6); Eosinophil % 2.7 %; Hematocrit 26.9 % (38-53); Hemoglobin 8.8 g/dL (13.2-16.3); Lymphocyte % 29.6 %; Mean Corpuscular Hgb Conc 32.8 g/dL (31-36); Mean Corpuscular Volume 94.6 fL (80-97); Mean Platelet Volume 7.9 fL (7.5-11.2); Platelet Count 181 10^3/uL (150-450); Red Blood Count 2.85 10^6/uL (4.06-5.63); Red Cell Distribution Width 18.6 % (12-17)
[2023-11-06 07:07] LABS: Calcium 7.4 mg/dL (8.6-10.3); Creatinine, Serum 1.08 mg/dL (0.67-1.17); Potassium 4.1 mmol/L (3.5-5.0); eGFR CKD-EPI 79.5 (>60)
[2023-11-06] MEDS: Enoxaparin 40 MG/0.4 ML SYR SUBCUT SCH (15:21)
[2023-11-06] MEDS: D5W 1000 ml BAG 1,000 ML IV SCH (19:22)
[2023-11-07] MEDS: D5W 1000 ml BAG 1,000 ML IV SCH (05:45)
[2023-11-07 07:45] LABS: ABS Eosinophils 0.2 10^3/uL (0.0-0.5); ABS Monocytes 0.3 10^3/uL (0.0-1.1); ABS Neutrophils 3.1 10^3/uL (1.5-7.6); Eosinophil % 3.2 %; Hematocrit 28.9 % (38-53); Hemoglobin 9.5 g/dL (13.2-16.3); Mean Corpuscular Hgb Conc 32.9 g/dL (31-36); Mean Corpuscular Volume 94.2 fL (80-97); Mean Platelet Volume 7.9 fL (7.5-11.2); Nucleated Red Blood Cells % 0.1 %/100WBC (0.0-0.8); Platelet Count 183 10^3/uL (150-450); Red Blood Count 3.06 10^6/uL (4.06-5.63); Red Cell Distribution Width 18.2 % (12-17); White Blood Count 4.6 10^3/uL (3.6-10.2)
[2023-11-07 08:05] LABS: Albumin 3.2 g/dL (3.2-5.2); Albumin/Globulin Ratio 1.3 (1-3); Calcium 7.3 mg/dL (8.6-10.3); Creatinine, Serum 1.04 mg/dL (0.67-1.17); Globulin 2.4 g/dL (2-4); Potassium 3.9 mmol/L (3.5-5.0); Total Bilirubin 0.4 mg/dL (0.2-1.0); Total Protein 5.6 g/dL (6.4-8.9); eGFR CKD-EPI 83.2 (>60)
[2023-11-07] MEDS: Enoxaparin 40 MG/0.4 ML SYR SUBCUT SCH (12:13)
[2023-11-07] MEDS ORDERED: Gadoteridol (CONTRAST) 279.3 MG/ML 10 ML IV ONE (22:20)
[2023-11-08] MEDS: Sodium Bicarb 650 mg (ANTACID) TAB PO SCH ×2 (08:05→11:13)
[2023-11-08 09:50] VITALS: BP 96/59
[2023-11-08] MEDS: Enoxaparin 40 MG/0.4 ML SYR SUBCUT SCH (11:14)
== END 2023-11-08 15:05 | disposition home or self-care (01) | DRG 52 ==
LOC: EDHOLD 19:56 → ED 19:56 → SUATTDRO 11-05 00:35 → MEDTELE 11-05 01:51
PROVIDERS: ADMIT Internal Medicine; ATTEND Hospitalist